=== PATIENT | female | born 1985 | race Caucasian/White ===

== ENCOUNTER 2024-04-12 22:41 | Inpatient (IN) | payer OTHER, SELFPAY ==
[2024-04-12 22:44] VITALS: BP 136/80; PULSE 123; RESP 21; TEMP 36.4; O2SAT 100
--- NOTE | 2024-04-12 22:45 | DI.CT_ITS ---
Exam(s) CT ABDOMEN PELVIS W EXAM: CT ABDOMEN PELVIS W CLINICAL HISTORY: L. flank pain, b/l abd pain, hematuria TECHNIQUE: Imaging Protocol: Axial computed tomography images with coronal and sagittal reformatted images were created and reviewed. CONTRAST MATERIAL: Intravenous: Omnipaque 350 Contrast volume:75 mL Oral: No COMPARISON: CR LUMBAR SPINE COMPLETE from 12/03/2010 CR COCCYX ONLY from 12/03/2010 FINDINGS: ABDOMEN: Lung Bases: There is a small infiltrate in the right lower lobe which may represent atelectasis or pn eumonia. Please correlate clinically. There is a small fluid-filled structure adjacent to the heart in the mediastinum likely reflecting pericardial cyst. Liver: Normal density. No measurable mass. Portal, Superior Mesenteric, and Splenic Veins: Unremarkable. Gallbladder and Biliary Tract: Status post cholecystectomy. Mild intra and extrahepatic biliary duct al dilatation likely reflecting the post cholecystectomy state. Pancreas: Normal density. No inflammatory process or mass. There is calcification in the uncinate p rocess. Spleen: Normal. Adrenals: No masses seen. Kidneys: Normal size, contour and axis. No radiodense stones or obstructive uropathy. There is mild i nflammation surrounding the left ureter and left kidney. No stone is seen. This may reflect inflamm ation/infection. The left kidney shows normal enhancement. Abdominal Aorta: Abdominal portion non-dilated. Mild atherosclerotic calcification is present. Bowel: No obstruction or bowel wall thickening. Appendix is unremarkable. Peritoneal Cavity: No ascites, collection or mesenteric inflammatory response. No free air. Lymph Nodes: Within normal limits. Bones: Within normal limits for the patient's age. Soft Tissues: Unremarkable. PELVIS: Bladder: There is diffuse thickening of the wall of the urinary bladder. Mild stranding is seen arou nd the bladder. No bladder stones are seen. Reproductive Organs: The uterus is absent. The left ovary is visualized and measures 3.4 x 3.8 cm. There are several cysts seen within the left ovary. Lymph Nodes: Within normal limits. Bones: Within normal limits for the patient's age. IMPRESSION: 1. There is inflammation surrounding the left ureter and pelvis raising the question of infection/inf lammatory process such as acute pyelitis. There is also diffuse thickening and mild enhancement of t he wall of the urinary bladder suspicious for acute cystitis. 2. No evidence of nephrolithiasis or hydronephrosis. 3. Small infiltrate is seen in the right lower lobe which may represent atelectasis or pneumonia. Pl ease correlate clinically. 4. Status post cholecystectomy. RADIATION DOSE DELIVERED: 525.56mGy.cm Total DLP DATA REPOSITORY: All CT scans at this facility are submitted to the National Radiology Data Registry (NRDR) Dose Index Registry (DIR) with the [employer] ([employer]). RADIATION OPTIMIZATION: All CT scans at this facility use at least one of these dose optimization te chniques: automated exposure control; mA and/or kV adjustment per patient size (includes targeted exa ms where dose is matched to clinical indication); or iterative reconstruction.
[2024-04-12 22:48] VITALS: BP 139/76; PULSE 120; RESP 20; TEMP 36.6; O2SAT 98
--- NOTE | 2024-04-12 23:00 | ED.GENADUL_ITS ---
Discharge Plan Discharge Details Chief Complaint: Urinary Primary Care Provider: Alex Jon ED Provider: Pepe Mar Home Meds and New Rx's Prescriptions: No Action No Known Home Meds HPI General Mode of arrival: ambulatory . Date/Time Provider Initiated Documentation: 04/12/24 22:43 . Limitations to Documentation: no limitations . Information obtained by: patient . HPI Narrative: HPI: This is a 38-year-old female patient with a history of diabetes, hysterectomy, ovarian cyst, and a remote history of renal stones who is presenting for evaluation of flank and abdominal pain with hematuria. The patient reports that she has had urinary changes with some blood, dysuria, and urgency for the last few days. Today the blood worsened, and she developed left flank pain. This pain radiates down into her bilateral abdomen, and she states that she just feels generally unwell with chills. She has not noted any fever, has had some nausea but no vomiting, has tried ibuprofen in the outpatient environment without significant improvement in her symptoms. The patient reports that she has had a kidney stone in the past but this was a long time ago. She has undergone 2 surgeries for left ovarian cysts that have been only partially successful in managing her pelvic pain. She states that she is recently moved down to this area, and is reestablishing with care providers. She has a plan to meet with her primary care provider in 3 days to discuss changes to her diabetes medications. Exam: Gen: Awake and alert, in no apparent distress HEENT: Non-icteric sclera Neck: Supple Lungs: No apparent respiratory distress, normal respiratory effort. CV: Appears well perfused, heart with tachycardic rate but regular rhythm, soft, generally tender to palpation but most significantly in the epigastric and periumbilical region. No rigidity, rebound, guarding. Abdomen: Non-distended MSK: Moves 4 extremities without apparent limitation in ROM. The patient does endorse left CVA tenderness, no overlying skin changes Skin: Visualized skin without rashes, cyanosis. Neuro: Normal Gait, no obvious focal deficits or facial asymmetry. Speaks in full, clear sentences. Psych: Appropriate for situation. MDM: This is a 38-year-old female patient presenting for evaluation of flank pain, abdominal pain, and hematuria. Differential includes but is not limited to renal stones, pyelonephritis/UTI. The generalized nature of the patient's abdominal pain also increases my concern for intra-abdominal abnormalities such as pancreatitis, hepatitis, cholecystitis, appendicitis, diverticulitis. The patient has an extensive surgical history, and bowel obstruction was considered. She does not have pelvic pain and this is less typical pain for her but I did consider ovarian cyst, torsion, PID/TOA. The patient is status post hysterectomy and is less likely to be experiencing an ectopic . Given her tachycardia, I certainly consider systemic illness such as bacteremia or sepsis, though she is reassuringly without fever at this time. We will obtain laboratory studies to include [id number] test, urinalysis, CBC, CMP, lipase, magnesium. Given the symptoms that are not exclusively consistent with renal stone, we will proceed with CT imaging of her abdomen and pelvis to better characterize any abnormalities. I will provide her with Tylenol, Toradol, and Zofran for initial symptomatic management. ED Course: I independently interpreted the laboratory studies, which show no significant leukocytosis (mildly elevated 12), anemia, or thrombocytopenia. The chemistry panel is without evidence of electrolyte abnormality, kidney dysfunction, or liver injury. Lipase is low. Urinalysis shows hematuria, nitrite positive with pyuria, concerning for urinary tract infection. I signed out care of this patient to the oncoming provider prior to completion of her CT imaging to evaluate for intra-abdominal infection, infected stone, versus pyelonephritis without infected stone. Nini Montaño MD Related Data Home Medications ?Medication ?Instructions ?Recorded ?Confirmed Unknown [No Known Home Meds] 11/08/21 11/08/21 Allergies Allergy/AdvReac Type Severity Reaction Status Date / Time ciprofloxacin (From Cipro) AdvReac Severe Nausea Verified 04/12/24 22:47 metformin AdvReac Severe Diarrhea Verified 04/12/24 22:47 lisinopril AdvReac Unknown Unknown Verified 04/12/24 22:47 General Stated Complaint: Urinary TAMIKO: 3 Course Vital Signs Vital signs: Vital Signs Temperature 36.4 C 04/12/24 22:44 Pulse 123 H 04/12/24 22:44 Respiratory Rate 21 04/12/24 22:44 Blood Pressure 136/80 04/12/24 22:44 Pulse Oximetry 100 04/12/24 22:44 Temperature 36.6 C 04/12/24 22:48 Temperature Source Temporal Artery Scan 04/12/24 22:44 Pulse 120 H 04/12/24 22:48 Respiratory Rate 20 04/12/24 22:48 Blood Pressure 139/76 04/12/24 22:48 Blood Pressure Position Sitting 04/12/24 22:48 Pulse Oximetry 98 04/12/24 22:48 Oxygen Delivery Method Room Air 04/12/24 22:48 Oxygen Flow Rate 0 04/12/24 22:44 Pain Level 10 04/12/24 22:55 Lab/Test Results Lab/Test Results: POC- Test(urine) Negative Medical Decision Making Quality:SDOH Health Related Social Needs: No Data to Display PFSH All Active Problems (Updated 11/08/21 @ 15:21 by Lasha Byrd MD) Foreign body in nose (Acute) Surgical History (Updated 11/08/21 @ 15:13 by Lasha Byrd MD) S/p bilateral myringotomy with tube placement History of tonsillectomy and adenoidectomy Social History Smoking/Tobacco Use Status: Current every day Tobacco Type: cigarettes Smoking risk assessment performed?: Yes Alcohol Intake: current Alcohol Intake frequency: holidays/special occasions only Drug use: Occasionally Substance use type: marijuana Housing: apartment Do you feel safe at home: Yes Do you feel safe in your relationship?: Yes
[2024-04-12 23:05] LABS: Bilirubin Small (Negative); Blood Large (Negative); Clarity Turbid (Clear); Glucose 500 mg/dL (Negative); Ketones Trace mg/dL (Negative); Leukocyte Esterase Small (Negative); Nitrite Positive (Negative); Specific Gravity 1.025 (1.005-1.025)
[2024-04-12 23:17] LABS: RBC 20-50 HPF (0-2)
[2024-04-12 23:18] LABS: Bacteria Few HPF (Negative); C & S Indicated? Yes; Casts Negative LPF (Negative); Crystals Negative HPF (Negative); Epithelial Cells Few HPF (Negative); Mucus Moderate (Negative)
[2024-04-12] MEDS: Acetaminophen 500 MG TAB 1000 MG PO (23:22)
[2024-04-12] MEDS: Ondansetron 4 MG/2 ML VIAL IVP (23:22)
[2024-04-12] MEDS: Ketorolac 15 MG/ML VIAL IVP (23:22)
[2024-04-12 23:42] LABS: Abs Immature Grans 0.04 10^3/uL (0.0-0.06); Absolute Basophil Count 0.06 10^3/uL (0.0-0.2); Absolute Eosinophil Count 0.22 10^3/uL (0.0-0.7); Absolute Lymphocyte Count 1.95 10^3/uL (1.2-3.4); Absolute Monocyte Count 0.72 10^3/uL (0.1-0.8); Absolute Neutrophil Count 9.07 10^3/uL (1.2-6.7); Basophils % 0.5 %; Eosinophils % 1.8 %; HCT 41.3 % (36.0-46.0); HGB 14.5 g/dL (11.2-15.7); Immature Grans % 0.3 %; Lymphocytes % 16.2 %; MCH 31.7 pg (27.0-33.0); MCHC 35.1 % (32.0-36.0); MCV 90 fL (80-95); MPV 12.8 fL (8.0-11.0); Neutrophils % 75.2 %; Platelet Count 137 10^3/uL (130-400); RBC 4.57 10^6/uL (3.93-5.22); RDW 12.2 % (11.7-14.6); RDW-SD 40.1 fL; WBC 12.06 10^3/uL (4.4-10.8)
[2024-04-12 23:57] LABS: Lipase 27 U/L (<78)
[2024-04-12 23:59] LABS: ALT 30 U/L (14-59); AST 9 U/L (15-37); Albumin 3.4 g/dL (3.4-5.0); Alkaline Phosphatase 93 U/L (46-116); Anion Gap 3.5 mmol/L (3-11); BUN 10 mg/dL (7-18); Bilirubin, Total 0.39 mg/dL (0.2-1.0); CO2 30.5 mmol/L (21.0-32.0); CREATININE 0.7 mg/dL (0.55-1.02); Calcium 8.9 mg/dL (8.5-10.1); Chloride 108 mmol/L (98-107); Estimated GFR 113.46 (mL/min/1.73m2); Glucose 241 mg/dL (74-106); Magnesium 1.9 mg/dL (1.8-2.4); Potassium 3.4 mmol/L (3.5-5.1); Sodium 142 mmol/L (136-145); Total Protein 6.4 g/dL (6.4-8.2)
[2024-04-13] VITALS (7 sets, daily range): BP systolic 91–128; BP diastolic 59–76; PULSE 64–87; RESP 16–19; TEMP 35.6–37; O2SAT 92–100
[2024-04-13] MEDS: MORPHine 4 MG/ML SYR IVP ×2 (00:12→01:33)
[2024-04-13] MEDS: Omnipaque 350 MG/ML 100 ML BTL IJ (00:56)
[2024-04-13] MEDS: Normal Saline Flush 10 ML SYR IVP ×3 (00:57→21:20)
[2024-04-13] MEDS: Normal Saline - Diluent 50 ML VIAL IJ (00:57)
--- NOTE | 2024-04-13 01:22 | DI.VRAD_ITS ---
PROCEDURE INFORMATION: Exam: CT Abdomen And Pelvis With Contrast Exam date and time: 04/13/2024 12:31 AM Age: 38 years old Clinical indication: Abdominal pain and other: L flank; Prior surgery; Surgery date: 6+ months; Surgery type: Hysterectomy; Patient HX: L. Flank pain, b/l abd pain, hematuria TECHNIQUE: Imaging protocol: Computed tomography of the abdomen and pelvis with contrast. Radiation optimization: All CT scans at this facility use at least one of these dose optimization techniques: automated exposure control; mA and/or kV adjustment per patient size (includes targeted exams where dose is matched to clinical indication); or iterative reconstruction. Contrast material: OMNIPAQUE 350; Contrast volume: 75 ml; Contrast route: INTRAVENOUS (IV); COMPARISON: No relevant prior studies available. FINDINGS: Lungs: Asymmetric hazy opacity partially visualized in the right lower lung zone. Liver: Normal appearing liver. Gallbladder and biliary ducts: Prior cholecystectomy with postop biliary dilatation. Pancreas: Normal appearing pancreas. Spleen: Normal appearing spleen. Adrenal glands: Normal appearing adrenal glands. Kidneys and ureters: Normal appearing kidneys. No hydronephrosis. Mild asymmetric prominence of the left renal collecting system but no mayra hydronephrosis. Asymmetrically prominent visualization of the urothelium in the left renal pelvis. Periureteral edema on the left. No distally obstructing ureteral stone demonstrated. Stomach and bowel: No oral contrast. Stomach partially distended with fluid. No small bowel dilatation to suggest obstruction. Normal-appearing colon. No evidence of diverticulitis or colitis. Appendix: Normal appendix. Intraperitoneal space: No gross ascites or free air. Vasculature: Normal caliber abdominal aorta. Lymph nodes: No pathologically enlarged mesenteric, retroperitoneal, or pelvic sidewall lymph nodes. Urinary bladder: Urinary bladder partially decompressed but circumferentially thick-walled with hazy indistinctness of the bladder margins. Reproductive: Prior hysterectomy. Ovaries not well evaluated but not grossly enlarged. 2.0 cm dominant right ovarian follicle. Bones/joints: No acute fracture seen among the bones of the abdomen or pelvis. Spinal degenerative change with discogenic degeneration, anterior osteophytes, and posterior osteophytic ridging at several levels with severe narrowing of the left L5-S1 neural foramen with partial flattening of the left L5 nerve root. Congenital lumbar stenosis. Soft tissues: No significant ventral or inguinal hernia. IMPRESSION: 1. Urinary bladder partially decompressed but circumferentially thick-walled with hazy indistinctness of the bladder margins. Acute cystitis could have this appearance although an artifactual appearance created by underdistention can also produce apparent bladder wall thickening. Clinical correlation is recommended. 2. Mild asymmetric prominence of the left renal collecting system with asymmetrically prominent visualization of the urothelium in the renal pelvis and diffuse left-sided ureterectasis. A urinary tract infection with acute pyelitis could have this appearance. Recent passage of a stone from the left upper urinary tract would also be a consideration. Clinical correlation is recommended. 3. Asymmetric hazy opacity partially visualized in the right lower lobe. Atelectasis suspected primarily. Infection or aspiration not confidently excluded. Dictated and Authenticated by: Mick Chavez MD. Ordering:LUIS Calabrese MD
[2024-04-13] MEDS: cefTRIAXone 1 GM/50 ML BAG IVPB (01:28)
[2024-04-13] MEDS: Normal Saline 1,000 ML 1000 ML IV (01:30)
--- NOTE | 2024-04-13 01:30 | W.EDPROG ---
Date of service: 04/13/24 Time of Service: 01:49 Medical Decision Making Patient signed out to me pending results of her CT scan. Patient had presented with hematuria, urinary symptoms, back and abdominal pain. Laboratory studies with a leukocytosis, normal kidney function, UTI by dip and micro. Patient had already received ketorolac, ondansetron, acetaminophen intravenously and continued to complain of significant pain. She has subsequently received 2 doses of IV morphine as well as oral Pyridium. CT scan preliminary radiology read with evidence of both cystitis and pyelonephritis but no evidence of stone and no other acute abdominal pelvic pathology. Patient has received ceftriaxone IV. Because of continued significant pain Case is discussed with hospitalist for admission for pain management, antibiotics. She is receiving a liter of NS at this time for continued mild tachycardia. She is agreeable to admission. Imaging Data Radiologic Study: Imaging: CT Scan Radiologist's impression: Prelim per vRad Abd/Pelvis CT - IMPRESSION: 1. Urinary bladder partially decompressed but circumferentially thick-walled with hazy indistinctness of the bladder margins. Acute cystitis could have this appearance although an artifactual appearance created by underdistention can also produce apparent bladder wall thickening. Clinical correlation is recommended. 2. Mild asymmetric prominence of the left renal collecting system with asymmetrically prominent visualization of the urothelium in the renal pelvis and diffuse left-sided ureterectasis. A urinary tract infection with acute pyelitis could have this appearance. Recent passage of a stone from the left upper urinary tract would also be a consideration. Clinical correlation is recommended. 3. Asymmetric hazy opacity partially visualized in the right lower lobe. Atelectasis suspected primarily. Infection or aspiration not confidently excluded. Lab Data Lab results reviewed: Yes I reviewed the patient's lab results. Discharge Plan Disposition Patient Disposition: Admit to [facility] Condition: Fair Discharge Details Clinical Impression: Pyelonephritis Primary Care Provider: Alex Jon ED Provider: Pepe Mar Home Meds and New Rx's Prescriptions: No Action No Known Home Meds
[2024-04-13] MEDS: Phenazopyridine 100 MG TAB PO (01:33)
[2024-04-13] MEDS: fentaNYL 100 MCG/2 ML VIAL 25 MCG IVP (04:49)
--- NOTE | 2024-04-13 05:27 | W.PM.HP.N ---
Date of service: 04/13/24 Time of Service: 05:27 Assessment and Plan Assessment and plan (1) Pyelonephritis: Start date: 04/13/24 Status: Acute Assessment and plan: This is a 38-year-old lady presenting with urgency which is persisting with a stating she urinates and flank pain which is progressed mostly on her left. She has had recent COVID-19 infection clinically unclear except for slight cough. In the ED she was found to have elevated WBC was tachycardic respond to IV fluids. She also was slightly hypokalemic with no repletion other than IV normal saline given. Her flank pain persists and is responded to fentanyl IV which will be given for pain management. Reinitiated on IV Rocephin which will be continued. Urine culture will be followed up with adjustment of antibiotics as needed. She is diabetic and will have insulin coverage while in the hospital having been only on glimepiride as her medical therapy. She is on no other medications. She does have sleep apnea which is untreated. She is new to the area. She did have gross hematuria with her onset of urinary symptoms and he will be IV hydrated with the possibility of recent passage of stone with a history of nephrolithiasis. Overall she is feeling better but requires inpatient care of her: [employer] especially complicated by possible recent passage of stone and diabetes uncontrolled. Urology will be consulted if needed. Renal ultrasound will be done. Patient is a full code. (2) Gross hematuria: Start date: 04/13/24 Status: Acute Assessment and plan: Associate with UTI and pyelonephritis but possible recent passage of stone. Renal ultrasound. Continue IV hydration. (3) UTI (urinary tract infection): Start date: 04/13/24 Status: Acute Assessment and plan: Urine culture performed and patient on IV ceftriaxone. Follow-up urine culture and adjust antibiotics as needed. (4) Right lower lobe pneumonia: Start date: 04/13/24 Status: Acute Assessment and plan: This may be residual from COVID-19 and would be covered by ceftriaxone if bacterial. Patient has slight cough and chills but no fever. She is a non-smoker and has sleep apnea which is untreated. Follow-up with imaging as indicated. (5) COVID-19: Status: Resolved Assessment and plan: Patient had COVID-19 2 weeks ago and symptoms had resolved except for slight cough. Recheck COVID-19 PCR. (6) Hypokalemia: Start date: 04/13/24 Status: Acute Assessment and plan: Patient is not on diuretics but has had acute illness recently. Oral supplement and follow-up lab. (7) Type 2 diabetes mellitus: Status: Chronic Assessment and plan: Patient had poor control on the ride and is to start injectable therapy soon. While hospitalized she will have glucometer management before meals and at bedtime with moderate sliding scale. Insulin coverage. (8) Nephrolithiasis: Status: Chronic Assessment and plan: Patient has renal lithiasis in the past with possible recent passage of this fall but no overt infection. Renal ultrasound and urology consultation if indicated. (9) SHILPI (obstructive sleep apnea): Status: Chronic Assessment and plan: Patient is not on treatment for this problem. Weight loss is advised and may be achieved as she is started on GLP-1 agonist therapy for diabetes. History of Present Illness History of Present Illness Chief Complaint: Urgency for several days with acute flank pain with hematuria Narrative: This is a 38-year-old female patient recently established care locally who has a history of diabetes only on oral therapy, SHILPI not on therapy, COVID-19 infection 2 weeks prior, status post hysterectomy and ovarian cyst with remote history of renal stones presenting to the ED with left flank pain and hematuria. She also reported chills but no measured fever. She has had a slight persistent cough after COVID-19 infection. Her pain presently radiates into her abdomen bilaterally but more on the left and she was feeling unwell. Had some nausea with her discomfort. In the ED she was found to have an left pyelonephritis with UTI and cystitis I was initiated on ceftriaxone. She was requiring IV analgesics for pain having failed oral analgesics in the ED and having nausea. There is no evidence of obstruction or pain but renal ultrasound will be indicated. She also was on IV hydration. Patient is a full code. Review of Systems Narrative: 13 point review of systems otherwise unrevealing or stable. Patient's weight has not changed recently. She has had recent COVID-19 with slight persistent cough but no production of sputum. She has had nausea with her abdominal pain. PFSH All Active Problems (Updated 04/13/24 @ 05:55 by Temo Leach) Hypokalemia (Acute) Type 2 diabetes mellitus (Chronic) Right lower lobe pneumonia (Acute) SHILPI (obstructive sleep apnea) (Chronic) Nephrolithiasis (Chronic) Gross hematuria (Acute) UTI (urinary tract infection) (Acute) Pyelonephritis (Acute) Foreign body in nose (Acute) Surgical History (Updated 11/08/21 @ 15:13 by Lasha Byrd MD) S/p bilateral myringotomy with tube placement History of tonsillectomy and adenoidectomy Social History Smoking/Tobacco Use Status: Current every day Tobacco Type: cigarettes Smoking risk assessment performed?: Yes Alcohol Intake: current Alcohol Intake frequency: holidays/special occasions only Drug use: Occasionally Substance use type: marijuana Housing: other Do you feel safe at home: Yes Do you feel safe in your relationship?: Yes Meds Allergies and Home Medications Allergies Allergy/AdvReac Type Severity Reaction Status Date / Time ciprofloxacin (From Cipro) AdvReac Severe Nausea Verified 04/12/24 22:47 metformin AdvReac Severe Diarrhea Verified 04/12/24 22:47 lisinopril AdvReac Unknown Unknown Verified 04/12/24 22:47 Home Medications ?Medication ?Instructions ?Recorded ?Confirmed ?Type Unknown [No Known Home Meds] 11/08/21 04/13/24 History Exam Narrative Exam Narrative: General: Patient is moderately obese, alert and oriented x 3 and in moderate distress from her flank pain. HEENT: Normocephalic, eyes with pupils equal and react to light symmetrically, extraocular movement intact and sclera anicteric. Oropharynx with moist mucosa. Neck: Supple without JVD. Back: Left CVA tenderness, stooped posture. Lungs: Good aeration and clear with no focalizing rales or rhonchi, no expiratory wheeze. Normal vesicular breath sounds. Breast: Exam deferred. Heart: Regular rate and rhythm with no murmurs or gallops appreciated. Abdomen: Obese contour, soft to palpation but tender over the left mid abdomen more than right with no palpable hepatosplenomegaly. Bowel sounds positive all quadrants. Genitalia/rectal: Exam deferred. Extremities: Without clubbing, cyanosis or pitting edema. Peripheral pulses intact. Skin: Normal color, warm and dry. Neuro: Cranial nerves II through XII gross intact, no focalized motor deficits. No tremor. Psych: Normal affect and mood. No abnormal thought processes. Remote memory intact. Results Imaging Imaging Studies: Exam: CT Abdomen And Pelvis With Contrast Exam date and time: 04/13/2024 12:31 AM Age: 38 years old Clinical indication: Abdominal pain and other: L flank; Prior surgery; Surgery date: 6+ months; Surgery type: Hysterectomy; Patient HX: L. Flank pain, b/l abd pain, hematuria abnormal COMPARISON: No relevant prior studies available. FINDINGS: Lungs: Asymmetric hazy opacity partially visualized in the right lower lung zone. Liver: Normal appearing liver. Gallbladder and biliary ducts: Prior cholecystectomy with postop biliary dilatation. Pancreas: Normal appearing pancreas. Spleen: Normal appearing spleen. Adrenal glands: Normal appearing adrenal glands. Kidneys and ureters: Normal appearing kidneys. No hydronephrosis. Mild asymmetric prominence of the left renal collecting system but no mayra hydronephrosis. Asymmetrically prominent visualization of the urothelium in the left renal pelvis. Periureteral edema on the left. No distally obstructing ureteral stone demonstrated. Stomach and bowel: No oral contrast. Stomach partially distended with fluid. No small bowel dilatation to suggest obstruction. Normal-appearing colon. No evidence of diverticulitis or colitis. Appendix: Normal appendix. Intraperitoneal space: No gross ascites or free air. Vasculature: Normal caliber abdominal aorta. Lymph nodes: No pathologically enlarged mesenteric, retroperitoneal, or pelvic sidewall lymph nodes. Urinary bladder: Urinary bladder partially decompressed but circumferentially thick-walled with hazy indistinctness of the bladder margins. Reproductive: Prior hysterectomy. Ovaries not well evaluated but not grossly enlarged. 2.0 cm dominant right ovarian follicle. Bones/joints: No acute fracture seen among the bones of the abdomen or pelvis. Spinal degenerative change with discogenic degeneration, anterior osteophytes, and posterior osteophytic ridging at several levels with severe narrowing of the left L5-S1 neural foramen with partial flattening of the left L5 nerve root. Congenital lumbar stenosis. Soft tissues: No significant ventral or inguinal hernia. IMPRESSION: 1. Urinary bladder partially decompressed but circumferentially thick-walled with hazy indistinctness of the bladder margins. Acute cystitis could have this appearance although an artifactual appearance created by underdistention can also produce apparent bladder wall thickening. Clinical correlation is recommended. 2. Mild asymmetric prominence of the left renal collecting system with asymmetrically prominent visualization of the urothelium in the renal pelvis and diffuse left-sided ureterectasis. A urinary tract infection with acute pyelitis could have this appearance. Recent passage of a stone from the left upper urinary tract would also be a consideration. Clinical correlation is recommended. 3. Asymmetric hazy opacity partially visualized in the right lower lobe. Atelectasis suspected primarily. Infection or aspiration not confidently excluded. Labs 04/12/24 23:28 04/12/24 23:28 Labs: Laboratory Results - last 24 hr 04/12/24 04/12/24 22:50 23:28 WBC 12.06 H RBC 4.57 Hgb 14.5 Hct 41.3 MCV 90 MCH 31.7 MCHC 35.1 RDW 12.2 Plt Count 137 MPV 12.8 H Immature Gran % 0.3 Neutrophils % 75.2 Lymphocytes % 16.2 Monocytes % 6.0 Eosinophils % 1.8 Basophils % 0.5 Nucleated RBC % 0.0 Absolute Neutrophils 9.07 H Absolute Lymphocytes 1.95 Absolute Monocytes 0.72 Absolute Eosinophils 0.22 Absolute Basophils 0.06 Sodium 142 Potassium 3.4 L Chloride 108 H Carbon Dioxide 30.5 Anion Gap 3.5 BUN 10 Creatinine 0.7 Est GFR (CKD-EPI 2020) 113.46 Glucose 241 H Calcium 8.9 Magnesium 1.9 Total Bilirubin 0.39 AST 9 L ALT 30 Alkaline Phosphatase 93 Total Protein 6.4 Albumin 3.4 Lipase 27 Urine Color Red Urine Clarity Turbid Urine pH 7.0 Ur Specific [place] 1.025 Urine Protein >=300 H Urine Ketones Trace H Urine Blood Large H Urine Nitrite Positive H Urine Bilirubin Small H Urine Urobilinogen 1.0 H Ur Leukocyte Esterase Small H Urine RBC 20-50 H Urine WBC 10-20 H Ur Epithelial Cells Few Urine Crystals Negative Urine Bacteria Few Urine Casts Negative Urine Mucus Moderate Ur Culture Indicated? Yes Urine Glucose 500 H Last Vital Signs Temp 36.6 C 04/13/24 03:26 Pulse 64 04/13/24 03:26 Resp 16 04/13/24 03:26 BP 109/74 04/13/24 03:26 Pulse Ox 100 04/13/24 03:26 Time Spent Time spent with Patient: >75 minutes Time was spent: preparing to see the patient(eg.review tests), obtaining and/or reviewing separately otained hiistory, ordering medications,tests, procedures, indepentently interpreting results, counseling the patient and care coordination
[2024-04-13] MEDS: fentaNYL 100 MCG/2 ML VIAL 50 MCG IVP ×2 (06:56→09:00)
[2024-04-13] MEDS: Potassium Chloride 20 MEQ TABCR PO (06:59)
[2024-04-13 07:31] LABS: TSH (W/Ref FT4) 0.79 uIU/mL (0.36-3.74)
--- NOTE | 2024-04-13 08:00 | DI.US_ITS ---
Exam(s) US RENAL EXAM: US RENAL CLINICAL HISTORY: Nephrolithiasis with left pyelonephritis. TECHNIQUE: Fernandez scale, color and spectral Doppler were used. COMPARISON: CT CT ABDOMEN PELVIS W from 04/13/2024 FINDINGS: Renal size in cm: Right: 10.3. Left: 12.5. Echogenicity: Normal. Hydronephrosis: No. Cyst or mass: No. Nephrolithiasis: No. Other findings: None. Bladder:The bladder was empty and could not be evaluated. Ureteral jets: Right: Not seen on this examination. Left: Not seen on this examination. Renal color flow: Symmetric and within normal limits. IMPRESSION: No evidence of nephrolithiasis or hydronephrosis. DATA REPOSITORY:
[2024-04-13] MEDS: Enoxaparin 40 MG/0.4 ML SYR SC (08:19)
[2024-04-13] MEDS: Normal Saline 1,000 ML 150 ML IV ×3 (08:19→22:41)
[2024-04-13] MEDS: Insulin Aspart 300 UNITS/3 ML PEN SC ×2 (08:21→17:06)
--- NOTE | 2024-04-13 08:45 | PDOC.CMIN ---
Date of service: 04/13/24 Time of Service: 08:45 Care Management Initial Assmt Initial Assessment Reason for Hospitalization: Pylonephritis, Diabetes Functional Status/Living Situation Patient Presentation: Mira was lying in bed, visiting with 3 family members when CM met with her. She relocated to the area from [place] and is living in [place] with a roommate. She is recently and was staying with her sister Tosha. Mira is employed by the [employer] and is independent at baseline. Mira reported to CM that she has [employer] [facility] [employer] through her ex- but does not have information with her. CM notified the admission team and asked that they contact pt directly. Town of Residence: [place] Resides with: Other (Roommate) Significant Other/Family: Local (Sister in [place]) Natural Supports: Supportive family and friends Employment Status: Employed ([employer]) Instrumental Activities of Daily Living (ADLs): Independent Medications Medication Management: No Issues/Barriers identified Advance Directives Advance Directives: Do you have an Advance Directive: N 04/13/24 02:31 AD On File at [facility]: N 11/08/21 13:59 Date Asked 04/12/24 04/12/24 22:46 AD Date Reviewed COLST On File at [facility] COLST Date Scanned Code Status Resuscitation Status Full Code Portal Pt does not currently have a portal and education provided: Yes Insurance Coverage/Financial Issues Insurance: [facility] (patient reported) Financial Issues: Recently , relocated to [place] and is starting over. Care Team Visit Care Team Role Provider Type Alex Jon Primary Care Provider NON-[facility] STAFF PHYSICIAN Pepe Mar MD Emergency Provider [facility] STAFF PHYSICIAN Temo Leach Admit Provider NON-[facility] STAFF PHYSICIAN Attending Provider Discharge Potential Discharge Needs: PCP F/U Appt Anticipated Barriers to Discharge: Medical Status Patient/Family Education Needs: Review discharge instructions, discuss Ask Me Three Transportation: Private vehicle Plan: Anticipate, Mira will discharge home via private vehicle with family when medically ready for discharge. Pt will follow up with community providers and her discharge plan of care once established. No new services are anticipated at this time. CM placed [facility] referral with patients consent. Social Determinants of Health Screening Social Determinants of Health last assessed: 04/13/24 Will the Patient Participate in the Screening?: Declined to provide Do you worry about having a steady place to live?: no Problems where you live: no known problems In the past 12 months, have you had to go without electric, gas, oil or water in your home?: no Have you or anyone in your house had to go without enough food to eat?: no Has lack of transportation kept you from medical appointments or from doing things needed for daily living?: no Has anyone in your life made you feel unsafe or unsupported?: no How hard is it for you to pay for the very basics like food, housing, medical care, and heating? Would you say it is:: Not hard at all Do you want help finding or keeping work or a job?: I do not need or want help If for any reason you need help with day-to-day activities such as bathing, preparing meals, shopping, managing finances, etc., do you get the help you need?: I don?t need any help How often do you feel lonely or isolated from those around you?: Never Do you speak a language other than Georgian at home?: No Does the patient want assistance with any of the above?: No PFSH All Active Problems (Updated 04/13/24 @ 05:55 by Temo Leach) Hypokalemia (Acute) Type 2 diabetes mellitus (Chronic) Right lower lobe pneumonia (Acute) SHILPI (obstructive sleep apnea) (Chronic) Nephrolithiasis (Chronic) Gross hematuria (Acute) UTI (urinary tract infection) (Acute) Pyelonephritis (Acute) Foreign body in nose (Acute) Surgical History (Updated 11/08/21 @ 15:13 by Lasha Byrd MD) S/p bilateral myringotomy with tube placement History of tonsillectomy and adenoidectomy Social History Smoking/Tobacco Use Status: Current every day Tobacco Type: cigarettes Smoking risk assessment performed?: Yes Alcohol Intake: current Alcohol Intake frequency: holidays/special occasions only Drug use: Occasionally Substance use type: marijuana Housing: other Do you feel safe at home: Yes Do you feel safe in your relationship?: Yes
[2024-04-13] MEDS: HYDROmorphone 2 MG/ML SYR IVP ×4 (10:16→21:17)
--- NOTE | 2024-04-13 11:15 | PHA.REVIEW2 ---
Pharmacy Admission Review Admission Clinical Review Admission Pharmacy Review: Hypokalemia (Acute) Right lower lobe pneumonia (Acute) Gross hematuria (Acute) UTI (urinary tract infection) (Acute) Pyelonephritis (Acute) ciprofloxacin (From Cipro) Adverse Reaction (Severe, Verified 04/12/24 22:47) Nausea metformin Adverse Reaction (Severe, Verified 04/12/24 22:47) Diarrhea lisinopril Adverse Reaction (Unknown, Verified 04/12/24 22:47) Unknown Resuscitation Status Full Code Height 5 ft 2.5 in Weight 78.6 kg Pharmacy Admission Review Renal Dosing Renal Dosing: BUN 10 mg/dL (7-18) 04/12/24 23:28 Creatinine 0.7 mg/dL (0.55-1.02) 04/12/24 23:28 Medications needing adjustments: Reviewed (CrCl 106.98 mL/min) List of meds needing interventions: Current medications are okay Anticoagulation Anticoagulation: Hgb 14.5 g/dL (11.2-15.7) 04/12/24 23:28 Hct 41.3 % (36.0-46.0) 04/12/24 23:28 Plt Count 137 10^3/uL (130-400) 04/12/24 23:28 Creatinine 0.7 mg/dL (0.55-1.02) 04/12/24 23:28 DVT Prophylaxis: Reviewed Medications: Enoxaparin (40mg daily) Opiate Usage Evaluate Pain Scale/Pains Meds: Reviewed (hydromorphone 2mg IVP q4h PRN - 1 dose given so far) Scheduled Bowel Reg ordered if on Opiates?: No (PRN docusate/Miralax) Relevant Labs Relevant Labs: Sodium 142 mmol/L (136-145) 04/12/24 23:28 Potassium 3.4 mmol/L (3.5-5.1) L 04/12/24 23:28 Chloride 108 mmol/L (98-107) H 04/12/24 23:28 Magnesium 1.9 mg/dL (1.8-2.4) 04/12/24 23:28 Electrolytes, C-Reactive P, ESR: Reviewed (No new labs today) DM Control DM Control: Glucose 241 mg/dL (74-106) H 04/12/24 23:28 Finger Stick Blood Glucose 214 0821 Finger Stick Blood Glucose 213 0820 Finger Stick Blood Glucose 213 0820 DM Control: Reviewed Insulin Dosing, Diabetic Medication: Has order for SS insulin Cardiac Review BP, HR, EF%: Reviewed (HR and BP WNL) QTc Review QTc: Reviewed (No EKG on file) IV to PO Switch IV Medications: Reviewed (ceftriaxone and hydromorphone) Home Meds Home Med List reviewed: Reviewed Relevent Home Meds Not ordered & why?: No known home meds Current Meds Current Medication Order Review: Intervened Comments: Changed IV ED access Added 2nd PRN to fentanyl order per pharmacy protocol (order was then changed to hydromorphone by provider) Pharmacy Antibiotic Review Relevant Labs: WBC 12.06 10^3/uL (4.4-10.8) H 04/12/24 23:28 Temperature 35.8 C Temperature 36.6 C Temperature 36.6 C Pharmacy Antibiotic Activity: C/S review and Reviewed, no change Comments: Patient is on ceftriaxone, day 1, for pyelonephritis. Urine culture is pending, waiting on culture to determine appropriate PO treatment per provider.
[2024-04-13] MEDS: Ondansetron 4 MG/2 ML VIAL IVP ×4 (11:34→22:01)
[2024-04-13] MEDS: Nicotine 21 MG/24 HR PATCH TD (12:49)
[2024-04-13] MEDS: Patch Removal 1 EACH TP (13:28)
[2024-04-14] MEDS: HYDROmorphone 2 MG/ML SYR IVP ×3 (00:32→08:09)
[2024-04-14] MEDS: cefTRIAXone 1 GM/50 ML BAG IVPB (01:08)
[2024-04-14 02:41] VITALS: BP 142/79; PULSE 86; RESP 16; TEMP 36.4; O2SAT 95
[2024-04-14] MEDS: Ondansetron 4 MG/2 ML VIAL IVP ×2 (02:54→08:08)
--- NOTE | 2024-04-14 04:29 | W.PC.ACHO ---
Registration Status: Primary Language: Preferred Language: ED Information & Data Chief Complaint Urinary 04/12/24 23:04 Triage Note Pt experiencing pain and 04/12/24 22:44 frequency w/ urination x4 days, now bloody urine w/ back and abd pain (Last Updated 11/08/21 @ 15:13 by Lasha Byrd MD) S/p bilateral myringotomy with tube placement History of tonsillectomy and adenoidectomy Most Recent Vital Signs Temperature 36.4 C L 04/14/24 02:41 Temperature Source Tympanic 04/14/24 02:41 Pulse 86 04/14/24 02:41 Pulse Rhythm Regular 04/13/24 02:54 Respiratory Rate 16 04/14/24 02:41 Respiratory Effort Normal, Non-Labored 04/13/24 02:54 Respiratory Depth Normal 04/13/24 02:54 Respiratory Pattern Normal 04/13/24 02:54 Blood Pressure 142/79 H 04/14/24 02:41 Blood Pressure Position Sitting 04/12/24 22:48 Pulse Oximetry 95 04/14/24 02:41 Oxygen Delivery Method Room Air 04/14/24 02:41 Oxygen Flow Rate 0 04/14/24 02:41 Pain Level 8 04/14/24 03:36 Comment pain is in abdomen, flank areas 04/13/24 03:26 Allergies ciprofloxacin (From Cipro) Adverse Reaction (Severe, Verified 04/12/24 22:47) Nausea N/V SEVERE metformin Adverse Reaction (Severe, Verified 04/12/24 22:47) Diarrhea lisinopril Adverse Reaction (Unknown, Verified 04/12/24 22:47) Unknown Precautions Isolation Standard precaution 04/12/24 22:48 Active Medications Generic Name Dose Route Start Last Admin Trade Name Freq PRN Reason Stop Dose Admin Enoxaparin Sodium 40 mg 04/13/24 08:30 04/13/24 08:19 Enoxaparin 40 Mg/0.4 Ml Syr SC 40 mg DAILY FADI Administration Hydromorphone HCl 2 mg 04/13/24 12:43 04/14/24 03:36 Hydromorphone 2 Mg/Ml Syr IVP 2 mg Q3H PRN PRN Administration Sodium Chloride 1,000 mls @ 150 mls/hr 04/13/24 06:00 04/14/24 02:40 Saline 1000ml Bag IV 150 mls/hr INFUSION [facility] Infusion Ceftriaxone Sodium/Dextrose 1 gm in 50 mls @ 100 mls/hr 04/14/24 00:00 04/14/24 01:40 Rocephin IVPB Infused Q24H [facility] Infusion Insulin Aspart 0 units 04/13/24 08:00 04/13/24 21:38 Insulin Aspart 300 Units/3 Ml Pen SC Not Given 0800,1200,1700,2200 [facility] Protocol Ondansetron HCl 4 mg 04/13/24 11:23 04/14/24 02:54 Ondansetron 4 Mg/2 Ml Vial IVP 4 mg Q4H PRN PRN Administration Sodium Chloride 0 ml 04/12/24 22:50 04/13/24 00:57 Normal Saline Flush 10 Ml Syr IVP 10 ml PRN PRN Administration Sodium Chloride 0 ml 04/13/24 08:30 04/13/24 21:20 Normal Saline Flush 10 Ml Syr IVP 10 ml BID FADI Administration IV IV Catheter Type [] Saline Lock IV Catheter Type [Right Saline Lock Antecubital] IV Catheter Gauge [] 20 IV Catheter Gauge [Right 20 Antecubital] Diagnostics 04/14/24 04/13/24 04/12/24 Range/Units 05:35 05:49 23:28 WBC Pending RBC Pending Hgb Pending Hct Pending MCV Pending MCH Pending MCHC Pending RDW Pending Plt Count Pending MPV Pending Sodium Pending Potassium Pending Chloride Pending Carbon Dioxide Pending Anion Gap Pending BUN Pending Creatinine Pending Est GFR (CKD-EPI 2020) Pending Glucose Pending Calcium Pending Magnesium Pending Total Bilirubin Pending AST Pending ALT Pending Alkaline Phosphatase Pending Total Protein Pending Albumin Pending TSH 0.79 (0.36-3.74) uIU/mL COVID-19 Source Cancelled SARS-CoV-2 (PCR) Cancelled [id number] Documentation Fingerstick Glucose Start: 04/13/24 05:55 Freq: .ACHS Status: Active Protocol: Activity Type Activity Date Activity User E-sign Co-sign Detail Recorded Client Recorded Date Recorded By Document 04/13/24 21:23 BKG DAEMON(3) [id number] 04/13/24 21:28 BKG DAEMON(4) POC Urine Test Start: 04/12/24 22:44 Freq: .Urine Test Status: Complete Protocol: Activity Type Activity Date Activity User E-sign Co-sign Detail Recorded Client Recorded Date Recorded By Document 04/12/24 22:54 GILLIAN MAURO-VM02 04/12/24 22:54 GILLIAN Intake and Output - 24 Hour Total 04/12/24 22:41 thru 04/14/24 03:45 Intake Total 4040 Output Total 1775 Balance 2265 Weight 78.6 kg Intake: IV 3320 Oral 720 Output: Urine 1375 Emesis 400 Other: Urine Color [place] Urine Appearance Clear Urine Odor None Comment pt voided very little into toilet Emesis Description Retching Bile Falls Risk Assessment History of Falls No History 04/13/24 02:54 Contributing Factors No Factors 04/13/24 02:54 Ambulatory Aids Independent 04/13/24 02:54 Tubes/Lines W/no contributing factors 04/13/24 02:54 Gait Evaluation No gait disturbance 04/13/24 02:54 Cognition No cognitive impairment 04/13/24 02:54 Fall Total Score 10 04/13/24 02:54 Level of Risk Standard/Low Risk 04/13/24 02:54 Problems Hypokalemia (Acute) Type 2 diabetes mellitus (Chronic) Right lower lobe pneumonia (Acute) SHILPI (obstructive sleep apnea) (Chronic) Nephrolithiasis (Chronic) Gross hematuria (Acute) UTI (urinary tract infection) (Acute) Pyelonephritis (Acute) v v v v v v v v v Sending and/or Receiving Nurses: Please use comment section below to note any information pertinent to the patient hand-off not included above. Information / Comments: all questions answered Report received from: Era Manjarrez around 0230 04/13/24
[2024-04-14] MEDS: Normal Saline 1,000 ML 150 ML IV (06:39)
[2024-04-14 07:03] LABS: HCT 39.3 % (36.0-46.0); HGB 13.1 g/dL (11.2-15.7); MCHC 33.3 % (32.0-36.0); MCV 93 fL (80-95); Platelet Count 104 10^3/uL (130-400); RBC 4.23 10^6/uL (3.93-5.22); RDW-SD 41.2 fL; WBC 7.09 10^3/uL (4.4-10.8)
[2024-04-14 07:33] LABS: ALT 353 U/L (14-59); AST 222 U/L (15-37); Albumin 3.1 g/dL (3.4-5.0); Alkaline Phosphatase 118 U/L (46-116); Anion Gap 6.6 mmol/L (3-11); BUN 4 mg/dL (7-18); Bilirubin, Total 1.11 mg/dL (0.2-1.0); CO2 30.4 mmol/L (21.0-32.0); CREATININE 0.5 mg/dL (0.55-1.02); Calcium 8.3 mg/dL (8.5-10.1); Chloride 109 mmol/L (98-107); Estimated GFR 123.04 (mL/min/1.73m2); Glucose 166 mg/dL (74-106); Magnesium 1.9 mg/dL (1.8-2.4); Potassium 3.4 mmol/L (3.5-5.1); Sodium 146 mmol/L (136-145); Total Protein 6.1 g/dL (6.4-8.2)
[2024-04-14] MEDS: Enoxaparin 40 MG/0.4 ML SYR SC (08:09)
[2024-04-14] MEDS: Normal Saline Flush 10 ML SYR IVP (08:10)
--- NOTE | 2024-04-14 08:28 | RESPIRATORY ---
Spoke with patient about SHILPI diagnosis and she advised she had a CPAP machine approx. 10 years ago and the water chamber cracked and her DME wouldn't replace it. Stopped using and doesn't feel that it is needed.
[2024-04-14] MEDS: Insulin Aspart 300 UNITS/3 ML PEN SC ×2 (08:31→12:18)
[2024-04-14] MEDS: HYDROmorphone 4 MG TAB PO (10:42)
--- NOTE | 2024-04-14 10:52 | PDOC.CMPRO ---
Date of service: 04/14/24 Time of Service: 10:52 Care Management Progress Note Progress Note Text Progress Note Text: Mira is eager to discharge home and is transitioned to PO pain medication. Letter to return to work tomorrow without restrictions is written by GRANT; as recommended by Dr. Peters . Anticipate pt will discharge home today with no new services. Transportation will be provided by family. Discharge Potential Discharge Needs: PCP F/U Appt Anticipated Barriers to Discharge: None Identified Patient/Family Education Needs: Review discharge instructions, discuss Ask Me Three Transportation: Private vehicle Plan: Anticipate, Mira will discharge home via private vehicle with family when medically ready for discharge. Pt will follow up with community providers and her discharge plan of care once established. No new services are anticipated at this time. CM placed [facility] referral with patients consent. Social Determinants of Health Screening Social Determinants of Health last assessed: 04/14/24 Will the Patient Participate in the Screening?: Declined to provide Do you worry about having a steady place to live?: no Problems where you live: no known problems In the past 12 months, have you had to go without electric, gas, oil or water in your home?: no Have you or anyone in your house had to go without enough food to eat?: no Has lack of transportation kept you from medical appointments or from doing things needed for daily living?: no Has anyone in your life made you feel unsafe or unsupported?: no How hard is it for you to pay for the very basics like food, housing, medical care, and heating? Would you say it is:: Not hard at all Do you want help finding or keeping work or a job?: I do not need or want help If for any reason you need help with day-to-day activities such as bathing, preparing meals, shopping, managing finances, etc., do you get the help you need?: I don?t need any help How often do you feel lonely or isolated from those around you?: Never Do you speak a language other than Ukrainian at home?: No Does the patient want assistance with any of the above?: No Interventions CM: [facility] (referral placed, prior to discharge.)
[2024-04-14 11:17] VITALS: BP 119/66; PULSE 54; RESP 17; TEMP 36.1; O2SAT 95
--- NOTE | 2024-04-14 11:25 | PDOC.CMDIS ---
Date of service: 04/14/24 Time of Service: 11:25 LACE Index Scoring Tool Questions: Length of Stay (in days): 1 Was the patient admitted via the E.D.?: Yes E.D. Visits: 1 Answers: Total Score: 5 Risk of Readmission: Low Risk Care Management Discharge Plan Reason for Hospitalization: Pyelonephritis Discharge Plan: Discharge home via private vehicle with family. Follow up with community providers and discharge plan of care as directed. Mira is able to return to work tomorrow, no restrictions per Dr. Peters; work note generated by CM. [facility] referral was placed prior to discharge. Patient/Family Education Needs: Review discharge instructions, limitations, medications and plan to follow up with community providers. Discuss ask me three. SDOH Health Related Social Needs: No Data to Display Care Management Referrals: [facility] (referral placed, prior to discharge.)
--- NOTE | 2024-04-14 13:34 | DSE_ITS ---
Date of service: 04/14/24 Time of Service: 13:34 DS: Diagnosis Discharge Diagnosis (1) Pyelonephritis: Status: Acute (2) Gross hematuria: Status: Acute (3) UTI (urinary tract infection): Status: Acute (4) Right lower lobe pneumonia: Status: Acute (5) COVID-19: Status: Resolved (6) Hypokalemia: Status: Acute (7) Type 2 diabetes mellitus: Status: Chronic (8) Nephrolithiasis: Status: Chronic (9) SHILPI (obstructive sleep apnea): Status: Chronic Discharge Plan Disposition Patient Disposition: Home Condition: Good Discharge Details Reason For Visit: Pyelonephritis, Diabetes mellitus, Nephrolithiasis Admit Date/Time: 04/13/24 01:47 Admit Provider: Temo Leach Attending Provider: Temo Leach [facility] Course: Patient presented with significant flank pain that was ultimately determined to be secondary to pyelonephritis. She was initially treated with IV ceftriaxone and had significant improvement was ultimately transition to p.o. cefpodoxime. She did have ongoing pain and needed frequent IV Dilaudid however, upon transitioning to p.o. Dilaudid she did have longer resolution of her pain and ultimately felt comfortable discharging home to continue her antibiotic regimen. Home Meds and New Rx's Prescriptions: New cefpodoxime 200 mg Tablet 200 mg PO BID Qty: 14 0RF hydromorphone 4 mg Tablet 4 mg PO Q6H PRN PRNQty: 12 0RF Discharge Instructions Activity:: Activity as Tolerated Equipment/Supplies:: No Equipment Needed Diet:: As Tolerated Discharge Orders Discharge Orders: Discharge Order (Routine); Ordered 04/14/24 Ordered By: Chris Peters DS: Summary Time Spent with Patient providing and/or coordinating discharge services: Greater than 30 minutes Status at Discharge Functional status at discharge: independent ambulation Overall status at discharge: patient is back to baseline Mental Status: mental status grossly normal Speech and Movement: speech and movement normal Mood: congruent mood Affect: normal affect Quality:SDOH Health Related Social Needs: No Data to Display Exam Narrative Exam Narrative: Well-appearing young female sitting up in the bed in mild distress secondary to flank pain, ANO x 4, heart regular rhythm, lungs clear to auscultation bilaterally, abdomen soft, with mild diffuse tenderness, without rebounding or guarding Psych Mental Status: mental status grossly normal Speech and Movement: speech and movement normal Mood: congruent mood Affect: normal affect DS: Data Vitals/I&O Vitals and I&O: Vital Signs Temperature 97.0 F L 04/14/24 11:17 Temperature Source Tympanic 04/14/24 11:17 Pulse 54 L 04/14/24 11:17 Pulse Rhythm Regular 04/13/24 02:54 Respiratory Rate 17 04/14/24 11:17 Respiratory Effort Normal, Non-Labored 04/13/24 02:54 Respiratory Depth Normal 04/13/24 02:54 Respiratory Pattern Normal 04/13/24 02:54 Blood Pressure 119/66 04/14/24 11:17 Blood Pressure Position Sitting 04/12/24 22:48 Pulse Oximetry 95 04/14/24 11:17 Oxygen Delivery Method Room Air 04/14/24 02:41 Oxygen Flow Rate 0 04/14/24 02:41 Pain Level 8 04/14/24 10:42 Comment pain is in abdomen, flank areas 04/13/24 03:26 Intake & Output 04/13/24 04/14/24 04/14/24 17:59 05:59 17:59 Intake Total 1420 / 1420 1550 / 2970 1930 / 1930 Output Total 400 / 400 1050 / 1450 170 / 170 Balance 1020 / 1020 500 / 1520 1760 / 1760 Weight 176 lb 9.444 oz Intake: IV 1000 / 1000 1250 / 2250 1450 / 1450 Oral 420 / 420 300 / 720 480 / 480 Output: Urine 400 / 400 650 / 1050 120 / 120 Emesis 400 / 400 50 / 50 Other: Urine Color [place] Urine Appearance Clear Clear Clear Urine Odor None None None Comment pt voided very little into toilet Pt voided in toilet. Emesis Description Retching Bile Bile Mucous Data Completed and Pending Labs on day of discharge: Labs from last 24 hours 04/14/24 06:20 WBC 7.09 RBC 4.23 Hgb 13.1 Hct 39.3 MCV 93 MCH 31.0 MCHC 33.3 RDW 12.0 Plt Count 104 L MPV 13.0 H Sodium 146 H Potassium 3.4 L Chloride 109 H Carbon Dioxide 30.4 Anion Gap 6.6 BUN 4 L Creatinine 0.5 L Est GFR (CKD-EPI 2020) 123.04 Glucose 166 H Calcium 8.3 L Magnesium 1.9 Total Bilirubin 1.11 H AST 222 H ALT 353 H Alkaline Phosphatase 118 H Total Protein 6.1 L Albumin 3.1 L Preliminary micro results at discharge 04/12/24 22:50 Urine Culture - Preliminary Urine - Reflex from Ua Gram positive montrell Gram negative castro PFSH All Active Problems (Updated 04/14/24 @ 13:34 by Chris Peters MD) Hypokalemia (Acute) Type 2 diabetes mellitus (Chronic) Right lower lobe pneumonia (Acute) SHILPI (obstructive sleep apnea) (Chronic) Nephrolithiasis (Chronic) Gross hematuria (Acute) UTI (urinary tract infection) (Acute) Pyelonephritis (Acute) Foreign body in nose (Acute) Surgical History (Updated 11/08/21 @ 15:13 by Lasha Byrd MD) S/p bilateral myringotomy with tube placement History of tonsillectomy and adenoidectomy Social History Smoking/Tobacco Use Status: Current every day Tobacco Type: cigarettes Smoking risk assessment performed?: Yes Alcohol Intake: current Alcohol Intake frequency: holidays/special occasions only Drug use: Occasionally Substance use type: marijuana Housing: other Do you feel safe at home: Yes Do you feel safe in your relationship?: Yes Time Spent with Patient Time Spent with Patient: <45 minutes Time was spent: preparing to see the patient(eg.review tests), obtaining and/or reviewing separately otained hiistory, ordering medications,tests, procedures, referring, communicating with other health patient care provider, indepentently interpreting results, counseling the patient and care coordination
== END 2024-04-14 14:22 | disposition home or self-care (01) | DRG 689 ==
LOC: ER 04-13 02:32 → MS 04-13 02:51
PROVIDERS: Emergency Medicine; Admitting Provider Family Medicine; Emergency Provider Emergency Medicine; PCP Family Medicine; Visit Provider Family Medicine
DX: N10 Acute pyelonephritis (principal); J18.9 Pneumonia, unspecified organism; N30.01 Acute cystitis with hematuria; E87.6 Hypokalemia; E11.65 Type 2 diabetes mellitus with hyperglycemia; G47.33 Obstructive sleep apnea (adult) (pediatric); Z79.84 Long term (current) use of oral hypoglycemic drugs; F17.210 Nicotine dependence, cigarettes, uncomplicated; F12.90 Cannabis use, unspecified, uncomplicated; E66.9 Obesity, unspecified; Z87.442 Personal history of urinary calculi; Z68.31 Body mass index [BMI] 31.0-31.9, adult
CPT/HCPCS: 00123; 36415; 76770; 80053; 81025; 83690; 85027; 87077; 87635; 96361; 96365; 96375; 96376; 99285; J1650; 74177; 81003; 81015; 83735; 84443; 85025; 87086; 87186; 99223; 99239; J0696; J1171; J1644; J1815; J1885; J2270; J2405; J3010; J3490

== ENCOUNTER 2024-06-10 08:59 | Emergency (ER) | payer OTHER, SELFPAY ==
[2024-06-10 09:07] VITALS: BP 112/74; PULSE 118; RESP 20; TEMP 36.5; O2SAT 98
--- NOTE | 2024-06-10 09:30 | ED.GENADUL_ITS ---
Discharge Plan Disposition Patient Disposition: Home Condition: Good Discharge Details Clinical Impression: Sinusitis, URI (upper respiratory infection) Primary Care Provider: Alex Jon ED Provider: Geovanny Cooper Home Meds and New Rx's Prescriptions: New amoxicillin-pot clavulanate 875-125 mg tablet 1 tab PO BID 14 Days Qty: 28 0RF triamcinolone acetonide [Nasacort] 55 mcg aerosol,spray 2 spray intranasal DAILY Qty: 16.9 0RF Rx Instructions: administer into each nostril No Action cyclobenzaprine 10 mg tablet 10 mg PO TID PRN Patient Comments: TAKE 1 TABLET BY MOUTH THREE TIMES DAILY NEEDED FOR SPASM gabapentin 100 mg capsule 100 mg PO TID Patient Comments: TAKE 1 CAPSULE BY MOUTH THREE TIMES DAILY Discharge Instructions Instructions: Sinusitis, Adult ED Additional Instructions: At this time you have evidence of sinusitis which at this stage is likely bacterial. Please take the antibiotics as directed. Please take Tylenol and Motrin for pain. Please take the prescribed nasal spray as directed. It has been sent to your pharmacy on file. Please continue to use a [place] pot or steamy shower to help with your nasal drainage. Please apply a circular like motion to the 4 areas on your face to help with nerve stimulation to facilitate additional sinus drainage. if you notice any worsening of your symptoms, or any new symptoms such as worsening headache, worsening frontal head pain, vomiting, diarrhea, fever, chills, shortness of breath, chest pain, numbness, weakness, or fainting , please return immediately to the emergency department for reevaluation. Please follow up with your primary care provider as soon as possible for reassessment and reevaluation. As always, it was a pleasure participating in your medical care today. Stand Alone Forms: Work Release Referrals: Alex Jon [Primary Care Provider] - Discharge Data Discharge Date/Time-TO BE ENTERED AT DEPARTURE: 06/10/24 09:53 HPI General Date/Time Provider Initiated Documentation: 06/10/24 09:20 . HPI Narrative: 38-year-old female with a past medical history of type 2 diabetes and obstructive sleep apnea presents today for evaluation of frontal sinus congestion, cough, fatigue. Patient states that symptoms have been present for the last 7 to 8 days. Negative COVID and flu swabs at home, she has been having productive sputum both from coughing, and also nasally. She admits to a pressure-like sensation in front of her sinuses. She denies any neck stiffness. She denies any vision changes. She is not on any control or estrogen. No other complaints at this time. Past medical history is positive for tympanostomy tubes. Related Data Home Medications ?Medication ?Instructions ?Recorded ?Confirmed amoxicillin 875 mg-potassium 1 tab PO BID 14 days #28 tabs 06/10/24 clavulanate 125 mg tablet cyclobenzaprine 10 mg tablet 10 mg PO TID PRN 06/10/24 06/10/24 gabapentin 100 mg capsule 100 mg PO TID 06/10/24 06/10/24 triamcinolone acetonide 55 mcg 2 spray intranasal DAILY #16.9 mL 06/10/24 nasal spray aerosol (Nasacort) Previous Rx's ?Medication ?Instructions ?Recorded amoxicillin 875 mg-potassium 1 tab PO BID 14 days #28 tabs 06/10/24 clavulanate 125 mg tablet triamcinolone acetonide 55 mcg 2 spray intranasal DAILY #16.9 mL 06/10/24 nasal spray aerosol (Nasacort) Allergies Allergy/AdvReac Type Severity Reaction Status Date / Time ciprofloxacin (From Cipro) AdvReac Severe Nausea Verified 06/10/24 09:07 metformin AdvReac Severe Diarrhea Verified 06/10/24 09:07 lisinopril AdvReac Unknown Unknown Verified 06/10/24 09:07 General Stated Complaint: RespSymp TAMIKO: 3 Exam Narrative Exam Narrative: 1.Const: Well-nourished, Well-developed, appearing stated age 2.Eyes: PERRL, no conjunctival injection, and symmetrical lids. 3.ENT: Atraumatic external nose and ears. Moist MM. Neck: Symmetric, trachea midline, No thyromegaly. Frontal and maxillary sinus tenderness on percussion. Tympanic membranes are richardson pearly but do have evidence of previous scars. No significant erythema in the posterior oropharynx. 4.CVS: +S1/S2, Peripheral pulses 2+ and equal in all extremities. Brisk capillary refill in all extremities. 5.RESP: Unlabored respiratory effort. Clear to auscultation bilaterally. No wheezes rales or rhonchi 6.GI: Soft, Nontender/Nondistended, No hepatosplenomegaly. No guarding or rebound. 7.MSK: Normocephalic/Atraumatic, Extremities w/o deformity or ttp No cyanosis or clubbing, Normal movement of all extremities 8.Skin: Warm, Dry. No rashes or lesions. 9.Neuro: director diversity II-XII grossly intact. Sensation grossly intact, no focal neurologic deficits. 10.Psych: (AAO) x3. Appropriate mood and affect Course Vital Signs Vital signs: Vital Signs Temperature 36.5 C 06/10/24 09:07 Pulse 118 H 06/10/24 09:07 Respiratory Rate 20 06/10/24 09:07 Blood Pressure 112/74 06/10/24 09:07 Pulse Oximetry 98 06/10/24 09:07 Temperature 36.5 C 06/10/24 09:07 Temperature Source Oral 06/10/24 09:07 Pulse 118 H 06/10/24 09:07 Respiratory Rate 20 06/10/24 09:07 Blood Pressure 112/74 06/10/24 09:07 Blood Pressure Position Sitting 06/10/24 09:07 Pulse Oximetry 98 06/10/24 09:07 Oxygen Delivery Method Room Air 06/10/24 09:07 Oxygen Flow Rate 0 06/10/24 09:07 Pain Level 8 06/10/24 09:07 Medical Decision Making 38-year-old female with a past medical history of type 2 diabetes and obstructive sleep apnea presents today for evaluation of frontal sinus congestion, cough, fatigue. Patient states that symptoms have been present for the last 7 to 8 days. Negative COVID and flu swabs at home, she has been having productive sputum both from coughing, and also nasally. She admits to a pressure-like sensation in front of her sinuses. She denies any neck stiffness. She denies any vision changes. She is not on any control or estrogen. No other complaints at this time. Past medical history is positive for tympanostomy tubes. Exam demonstrates sinus tenderness for the frontal and maxillary sinuses. Lungs are clear, bedside ultrasound shows no infiltrate. Doubt pneumonia in this clinical scenario. COVID flu and RSV testing was negative. Suspect sinusitis, bacterial in nature. Will give a prescription for Augmentin for 14 days, will give nasal steroid, and recommend [place] pot at home. Discussed red flags for which to return. No evidence at this time to suggest dural venous sinus thrombosis, meningitis, septicemia. I have extensively reviewed the treatment plan and discharge instructions with the patient. I have addressed all patient concerns at this time. The patient was made aware of what symptoms to monitor for that would warrant a return to the emergency department. Discussed the plan with the patient, they demonstrate verbal understanding and agreement with our assessment and plan at this time. The documentation in this chart was dictated using ROI² dictation software. Please excuse any dictation errors. Quality:SDOH Health Related Social Needs: No Data to Display PFSH All Active Problems (Updated 06/10/24 @ 09:30 by Geovanny Cooper DO) URI (upper respiratory infection) (Acute) Sinusitis (Acute) Type 2 diabetes mellitus (Chronic) SHILPI (obstructive sleep apnea) (Chronic) Foreign body in nose (Acute) Surgical History (Updated 11/08/21 @ 15:13 by Lasha Byrd MD) S/p bilateral myringotomy with tube placement History of tonsillectomy and adenoidectomy Social History Smoking/Tobacco Use Status: Current every day Tobacco Type: cigarettes Smoking risk assessment performed?: Yes Alcohol Intake: current Alcohol Intake frequency: holidays/special occasions only Drug use: Occasionally Substance use type: marijuana Housing: other Do you feel safe at home: Yes Do you feel safe in your relationship?: Yes POCUS Exam (ED) Limited Thoracic Lung Exam DATE OF EXAM: 06/10/24 TIME OF EXAM: 18:25 PROVIDER THAT PERFORMED THE STUDY: Geovanny Cooper REASON FOR EXAM: Other (cough) indication: cough VISUALIZED STRUCTURES: right posterior and left posterior PERTINENT FINDINGS/IMPRESSION: No apparent abnormalities Exam complete
[2024-06-10 09:35] VITALS: BP 134/107; PULSE 113; RESP 18; TEMP 36.8; O2SAT 98
[2024-06-10 10:06] LABS: COVID-19 PCR Negative (Negative); Influenza A PCR Negative (Negative); Influenza B PCR Negative (Negative); RSV PCR Negative (Negative)
[2024-06-10 10:08] LABS: Source Nasopharynx
== END 2024-06-10 09:53 | disposition home or self-care (01) ==
LOC: ER 09:57
PROVIDERS: Emergency Provider Student in an Organized Health Care Education/Training Program; PCP Family Medicine
DX: J06.9 Acute upper respiratory infection, unspecified (principal); J01.10 Acute frontal sinusitis, unspecified; E11.9 Type 2 diabetes mellitus without complications; G47.33 Obstructive sleep apnea (adult) (pediatric); F17.210 Nicotine dependence, cigarettes, uncomplicated
CPT/HCPCS: 76604; 87637; 99283

== ENCOUNTER 2024-07-31 15:52 | Emergency (ER) | payer OTHER, SELFPAY ==
[2024-07-31] VITALS (20 sets, daily range): BP systolic 113–150; BP diastolic 65–95; PULSE 63–93; RESP 9–18; TEMP 36.5; O2SAT 97–99
--- NOTE | 2024-07-31 15:30 | RT.EKG_ITS ---
APPROVED REPORT Exam: Resting ECG Reason for Exam: chest pain Patient Location: E HR:82 bpm ECG Measurements Heart Rate 82 AXIS [place] 135 P 52 QRSd 83 QRS 73 QT 393 T 66 QTc 461 Conclusion Sinus rhythm...normal P axis, V-rate 60- 99 Physician: No Stemi
--- NOTE | 2024-07-31 15:47 | ED.GENADUL_ITS ---
Discharge Plan Disposition Patient Disposition: Home Condition: Stable Discharge Details Clinical Impression: Musculoskeletal chest pain Primary Care Provider: Alex Jon ED Provider: Geovanny Rodriguez Home Meds and New Rx's Prescriptions: Continued cyclobenzaprine 10 mg tablet 10 mg PO TID PRN Patient Comments: TAKE 1 TABLET BY MOUTH THREE TIMES DAILY NEEDED FOR SPASM gabapentin 100 mg capsule 100 mg PO TID Patient Comments: TAKE 1 CAPSULE BY MOUTH THREE TIMES DAILY triamcinolone acetonide [Nasacort] 55 mcg aerosol,spray 2 spray intranasal PRN Rx Instructions: administer into each nostril Discharge Instructions Instructions: Costochondritis, Chest Pain, Adult ED Additional Instructions: You were seen in the emergency department for your musculoskeletal chest pain, your cardiac workup is negative, your EKG is normal, your chest x-ray shows no acute abnormality we did rule out a blood clot in your lungs. You have chest pain that is worse with pressing on it indicating likely musculoskeletal chest pain but this also could be a pleurisy. Please take regular dose of Tylenol and ibuprofen, apply lidocaine patches to any areas of pain, these are [id number]. Please apply heat and ice to each area, please return for with any chest pain with dizziness, near fainting, shortness of breath, visual changes, severe nausea with chest pain or any other emergent concerns please follow-up with PCP referral to cardiology office as you have some family history of cardiac disease and could likely benefit from a routine scheduled visit with cardiology. Stand Alone Forms: Work Release Referrals: Alex Jon [Primary Care Provider] - Discharge Data Discharge Date/Time-TO BE ENTERED AT DEPARTURE: 07/31/24 18:04 HPI General Date/Time Provider Initiated Documentation: 07/31/24 16:01 . HPI Narrative: 38 year-old female presents to ED today with a chief complaint of chest pain with onset for the past 3 days, radiating to arm and back, with some sweating- recent PNA treatment. Quality described as sharp chest pains intermittently, no radiation to shortness of breath, near syncope, dizziness, active fever, abdominal pain, nausea. Severity is described as moderate. Palliating factors include nothing specific attempted. Provoking factors include nothing specific. Events leading up to the incident/Associated Symptoms: Patient states her aunt had an CO at 40. Patient not anticoagulated. Related Data Home Medications ?Medication ?Instructions ?Recorded ?Confirmed cyclobenzaprine 10 mg tablet 10 mg PO TID PRN 06/10/24 07/31/24 gabapentin 100 mg capsule 100 mg PO TID 06/10/24 07/31/24 triamcinolone acetonide 55 mcg 2 spray intranasal PRN 07/31/24 07/31/24 nasal spray aerosol (Nasacort) Allergies Allergy/AdvReac Type Severity Reaction Status Date / Time ciprofloxacin (From Cipro) AdvReac Severe Nausea Verified 07/31/24 15:44 metformin AdvReac Severe Diarrhea Verified 07/31/24 15:44 lisinopril AdvReac Unknown Unknown Verified 07/31/24 15:44 General Stated Complaint: Chest Pain TAMIKO: 3 Review of Systems All systems reviewed & are unremarkable except as noted in HPI and below Exam Narrative Exam Narrative: GENERAL APPEARANCE: Well-nourished, non-toxic, awake and alert, atraumatic, no acute distress. SKIN: Warm, pink, dry, intact, without rashes/lesions/ulcerations. HEAD: Normocephalic, atraumatic, normal hair distribution for gender/age. EYES: Normal conjunctiva, no exudates on lids/lashes. ENT: Nares patent, no circumoral cyanosis, no facial swelling NECK: Supple, trachea midline, painless cervical ROM. LUNGS/CHEST: Lungs CTA bilaterally, non-labored respirations, normal A/P diameter, symmetrical expansion, no chest wall deformity, mild pleuritic chest pain HEART (CV/PV): Regular rate and rhythm without murmur, no peripheral edema, no JVD. ABDOMEN: Soft, non-distended, no guarding. MSK: Normal ROM, no swelling/deformity to bilateral UEs or LEs, moving all extremities without weakness, no cyanosis, spine midline without tenderness, normal curvature. NEURO: Mental Status AAOx4 - alert to person, place, time, events No facial droop, no forehead involvement. Motor: No focal weakness - strength 5/5 in bilateral UEs and LEs, proximal and distal, symmetric. Sensory: sensation intact to light touch globally. Gait normal: patient ambulated without ataxia into ED room. PSYCH: euthymic, cooperative, pleasant, appropriate speech Course Vital Signs Vital signs: Vital Signs Temperature 36.5 C 07/31/24 15:39 Pulse 81 07/31/24 15:39 Respiratory Rate 14 07/31/24 15:39 Blood Pressure 150/87 H 07/31/24 15:39 Pulse Oximetry 99 07/31/24 15:39 Temperature 36.5 C 07/31/24 15:39 Temperature Source Temporal Artery Scan 07/31/24 15:39 Pulse 81 07/31/24 15:39 Respiratory Rate 14 07/31/24 15:39 Blood Pressure 150/87 H 07/31/24 15:39 Blood Pressure Position Sitting 07/31/24 15:39 Pulse Oximetry 99 07/31/24 15:39 Oxygen Delivery Method Room Air 07/31/24 15:39 Oxygen Flow Rate 0 07/31/24 15:39 Pain Level 8 07/31/24 15:39 Medical Decision Making This dictation utilizes [id number] dictation software and may contain unedited grammatical errors. 38 year-old female presents to ED today with a chief complaint of chest pain with onset for the past 3 days, radiating to arm and back, with some sweating- recent PNA treatment. Quality described as sharp chest pains intermittently, no radiation to shortness of breath, near syncope, dizziness, active fever, abdominal pain, nausea. Severity is described as moderate. Palliating factors include nothing specific attempted. Provoking factors include nothing specific. Events leading up to the incident/Associated Symptoms: Patient states her aunt had an CO at 40. Patients' medical history: T2DM. Family and social history: States her aunt had an CO at 40, otherwise noncontributory. Pertinent exam findings / vital signs include lungs CTA, benign cardiopulmonary exam, benign abdomen, mild pleuritic chest tenderness, nontoxic and afebrile. Differential / pathologies of concern include ACS, pleurisy, pneumonia, costochondritis, viral syndrome, PE, indigestion. Diagnostic studies of: - CBC, CMP, D-dimer, troponin, lipase, respiratory PCR swab, chest x-ray, EKG. - CBC shows no acute abnormality - CMP shows no actionable abnormality save for elevated glucose - D-dimer negative - Troponin negative with reliable onset - Lipase negative - Respiratory panel PCR swab negative - Chest x-ray completely clear - EKG shows no signs of ischemia Interventions of: -P.o. Tylenol, IV push Toradol, IV push Ativan for muscle relaxation, Lidoderm topical. ED Course/Assessment/Plan: 38-year-old female presents with chest pain for 3 days, has some family history of cardiac disease at 40 in aunt. Cardiac workup completely negative with reliable onset, patient has mildly pleuritic chest pain and no evidence of PE with a negative D-dimer, I do suspect musculoskeletal chest pain and advise she trial Tylenol and ibuprofen as well as warm compresses Lidoderm patches, strict return criteria for any worsening chest pain especially shortness of breath, dizziness, near fainting or any other emergent concerns. Findings not consistent with PE, right. Disposition of Musculoskeletal Chest Pain. Patient verbalized understanding of the plan and return to ED criteria and engaged in shared decision making. Medical Records Medical records reviewed: Yes I reviewed the patient's medical records. Imaging Data Radiologic Study: Attestation: I personally reviewed and interpreted this imaging study as follows: Imaging: X-Ray Radiologist's impression: EXAM: XR CHEST 2V PA LATERAL CLINICAL HISTORY: chest pain TECHNIQUE: 2D digital imaging was performed of the chest. Two images were obtained. PA and lateral views were obtained. COMPARISON: No exams were available for comparison FINDINGS: MEDIASTINUM: Normal. HEART: Normal. PULMONARY VASCULATURE: Normal. LUNGS: Clear. PLEURAL SPACE: No pleural effusion or pneumothorax. BONE:Within normal limits for the patient's age. OTHER FINDINGS:Normal. IMPRESSION: No acute pulmonary findings. Lab Data Lab results reviewed: Yes I reviewed the patient's lab results. Labs: Laboratory Tests Range/Units 07/31/24 07/31/24 15:52 16:05 WBC (4.4-10.8) 10^3/uL 9.71 RBC (3.93-5.22) 10^6/uL 4.55 Hgb (11.2-15.7) g/dL 14.2 Hct (36.0-46.0) % 41.6 MCV (80-95) fL 91 MCH (27.0-33.0) pg 31.2 MCHC (32.0-36.0) % 34.1 RDW (11.7-14.6) % 12.4 Plt Count (130-400) 10^3/uL 152 MPV (8.0-11.0) fL 12.2 H Immature Gran % % 0.3 Neutrophils % % 63.2 Lymphocytes % % 28.2 Monocytes % % 5.3 Eosinophils % % 2.4 Basophils % % 0.6 Nucleated RBC % (0.0-0.3) % 0.0 Absolute Neutrophils (1.2-6.7) 10^3/uL 6.14 Absolute Lymphocytes (1.2-3.4) 10^3/uL 2.74 Absolute Monocytes (0.1-0.8) 10^3/uL 0.51 Absolute Eosinophils (0.0-0.7) 10^3/uL 0.23 Absolute Basophils (0.0-0.2) 10^3/uL 0.06 D-Dimer (<500) ng/mlFEU 179 Sodium (136-145) mmol/L 140 Potassium (3.5-5.1) mmol/L 4.0 Chloride (98-107) mmol/L 105 Carbon Dioxide (21.0-32.0) mmol/L 27.0 Anion Gap (3-11) mmol/L 8.0 BUN (7-18) mg/dL 11 Creatinine (0.55-1.02) mg/dL 0.7 Est GFR (CKD-EPI 2020) (mL/min/1.73m2) 113.46 Glucose (74-106) mg/dL 224 H Calcium (8.5-10.1) mg/dL 9.0 Total Bilirubin (0.2-1.0) mg/dL 0.5 AST (15-37) U/L 10 L ALT (14-59) U/L 29 Alkaline Phosphatase (46-116) U/L 99 Troponin I (<or=51) ng/L < 4 Total Protein (6.4-8.2) g/dL 6.6 Albumin (3.4-5.0) g/dL 3.6 Lipase (<78) U/L 44 COVID-19 Source Nasopharynx SARS-CoV-2 (PCR) (Negative) Negative Influenza Type A (PCR) (Negative) Negative Influenza Type B (PCR) (Negative) Negative RSV (PCR) (Negative) Negative Quality:SDOH Health Related Social Needs: No Data to Display PFSH All Active Problems (Updated 07/31/24 @ 17:37 by ANETTE Dominguez) Musculoskeletal chest pain (Acute) Type 2 diabetes mellitus (Chronic) SHILPI (obstructive sleep apnea) (Chronic) Foreign body in nose (Acute) Surgical History (Updated 08/04/22 @ 15:13 by Lasha Byrd MD) S/p bilateral myringotomy with tube placement History of tonsillectomy and adenoidectomy Social History Smoking/Tobacco Use Status: Current every day Tobacco Type: cigarettes Smoking risk assessment performed?: Yes Alcohol Intake: current Alcohol Intake frequency: holidays/special occasions only Drug use: Occasionally Substance use type: marijuana Housing: other Do you feel safe at home: Yes Do you feel safe in your relationship?: Yes
[2024-07-31 16:07] LABS: Abs Immature Grans 0.03 10^3/uL (0.0-0.06); Absolute Basophil Count 0.06 10^3/uL (0.0-0.2); Absolute Eosinophil Count 0.23 10^3/uL (0.0-0.7); Absolute Lymphocyte Count 2.74 10^3/uL (1.2-3.4); Absolute Monocyte Count 0.51 10^3/uL (0.1-0.8); Absolute Neutrophil Count 6.14 10^3/uL (1.2-6.7); Basophils % 0.6 %; Eosinophils % 2.4 %; HCT 41.6 % (36.0-46.0); HGB 14.2 g/dL (11.2-15.7); Immature Grans % 0.3 %; Lymphocytes % 28.2 %; MCH 31.2 pg (27.0-33.0); MCHC 34.1 % (32.0-36.0); MCV 91 fL (80-95); MPV 12.2 fL (8.0-11.0); Monocytes % 5.3 %; Neutrophils % 63.2 %; Platelet Count 152 10^3/uL (130-400); RBC 4.55 10^6/uL (3.93-5.22); RDW 12.4 % (11.7-14.6); RDW-SD 41.2 fL; WBC 9.71 10^3/uL (4.4-10.8)
[2024-07-31] MEDS: Acetaminophen 500 MG TAB 1000 MG PO (16:13)
[2024-07-31 16:33] LABS: ALT 29 U/L (14-59); AST 10 U/L (15-37); Albumin 3.6 g/dL (3.4-5.0); Alkaline Phosphatase 99 U/L (46-116); BUN 11 mg/dL (7-18); Bilirubin, Total 0.5 mg/dL (0.2-1.0); CREATININE 0.7 mg/dL (0.55-1.02); Chloride 105 mmol/L (98-107); Estimated GFR 113.46 (mL/min/1.73m2); Glucose 224 mg/dL (74-106); Lipase 44 U/L (<78); Sodium 140 mmol/L (136-145); Total Protein 6.6 g/dL (6.4-8.2)
[2024-07-31 16:37] LABS: Troponin I < 4 ng/L (<or=51)
[2024-07-31 16:41] LABS: D-Dimer 179 ng/mlFEU (<500)
[2024-07-31 16:53] LABS: COVID-19 PCR Negative (Negative); Influenza A PCR Negative (Negative); Influenza B PCR Negative (Negative); RSV PCR Negative (Negative)
[2024-07-31 16:54] LABS: Source Nasopharynx
--- NOTE | 2024-07-31 17:00 | DI.RAD_ITS ---
Exam(s) XR CHEST 2V PA LATERAL EXAM: XR CHEST 2V PA LATERAL CLINICAL HISTORY: chest pain TECHNIQUE: 2D digital imaging was performed of the chest. Two images were obtained. PA and lateral views were obtained. COMPARISON: No exams were available for comparison FINDINGS: MEDIASTINUM: Normal. HEART: Normal. PULMONARY VASCULATURE: Normal. LUNGS: Clear. PLEURAL SPACE: No pleural effusion or pneumothorax. BONE:Within normal limits for the patient's age. OTHER FINDINGS:Normal. IMPRESSION: No acute pulmonary findings. DATA REPOSITORY: RADIATION DOSE DELIVERED:
[2024-07-31] MEDS: Ketorolac 15 MG/ML VIAL IVP (17:46)
[2024-07-31] MEDS: LORazepam 2 MG/ML VIAL 1 MG IVP (17:46)
[2024-07-31] MEDS: Lidocaine 5% Patch 1 PATCH TP (17:47)
== END 2024-07-31 18:04 | disposition home or self-care (01) ==
PROVIDERS: Emergency Provider Physician Assistant; PCP Family Medicine
DX: R07.89 Other chest pain (principal); E11.9 Type 2 diabetes mellitus without complications; F17.210 Nicotine dependence, cigarettes, uncomplicated
CPT/HCPCS: 36415; 80053; 83690; 87637; 93005; 96374; 96375; 99285; 71046; 84484; 85025; 85379; 93010; 99284; J1885; J2060

== ENCOUNTER 2025-02-11 12:42 | Emergency (ER) | payer OTHER, SELFPAY ==
[2025-02-11] VITALS (29 sets, daily range): BP systolic 114–189; BP diastolic 60–170; PULSE 45–108; RESP 10–23; TEMP 36.6; O2SAT 91–99
--- NOTE | 2025-02-11 13:00 | DI.CT_ITS ---
Exam(s) CT ABDOMEN PELVIS W EXAM: CT ABDOMEN PELVIS W CLINICAL HISTORY: recent splenic lac with intervention [facility] [place]. TECHNIQUE: Imaging Protocol: Axial computed tomography images with coronal and sagittal reformatted images were created and reviewed CONTRAST MATERIAL: Intravenous: Omnipaque-350 75cc Oral: None COMPARISON: CT CT ABDOMEN PELVIS W from 04/13/2024 CR XR CHEST 2V PA LATERAL from 07/31/2024 FINDINGS: VISUALIZED LUNG BASES: No infiltrates nor lung contusion nor pleural effusions evident. No rib fractures seen. Previously described cystic structure adjacent to the right heart border is again noted and is most probably a pericardial cyst. ABDOMEN: There is no ascites and there is no evidence of bowel wall nor mesenteric hematoma, given the recent trauma history here. LIVER: Intact. No lacerations nor lesions. There are again noted some dilated intrahepatic ducts in this patient has had prior cholecystectomy, this unchanged from CT scan of 04/13/2024. GALLBLADDER/BILIARY: Gallbladder is again noted be surgically absent. CBD diameter minimally prominent above the pancreatic head level. Normal diameter within the pancreatic head level. There is no evidence of radiopaque calculus nor mass in the CBD and no pancreatic head mass. PANCREAS: No evidence of pancreatic mass nor dilatation of the pancreatic duct. Single small parenchymal calcification is again noted in the uncinate process, not associated with mass. 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 Splenic vein is patent.. Spleen is abnormal in that there is now large subcapsular collection over the lateral aspect of the spleen which measures 13 cm craniocaudal by 5 cm wide by 10 cm AP, exhibiting homogeneous density averaging 31 HU. Hypodense linear findings in the more medially enhance spleen are some the lacerations sustained on the prior injury. There does not appear to be an obvious arterial blush at this time. The splenic vein is patent and exhibits upper normal diameter. Portal vein also patent. ADRENALS: Left adrenal gland unremarkable. There is a E nodule at the genu of the right adrenal gland measuring 1.6 x 1.0 cm, similar to 04/13/2024 and probably an incidental adenoma. KIDNEYS:Intact. There are no renal lacerations nor evidence of subcapsular hematomas in the kidneys. No cysts nor solid renal masses. No calculi. No hydronephrosis.. ABDOMINAL AORTA: Intact. Normal size. No evidence of periaortic hematoma. No dissection. LYMPH NODES:There is no retroperitoneal nor paraaortic adenopathy. ABDOMINAL WALL: No evidence of significant anterior abdominal wall nor inguinal hernia. No subcutaneous bruising. GI: There is no evidence of bowel obstruction, free air, nor abscess. PELVIS: GI: No evidence of appendicitis.No evidence of significant sigmoid diverticular disease. LYMPH NODES: There is no intrapelvic nor inguinal adenopathy. REPRODUCTIVE: The uterus is again noted to be surgically absent. There is now a cyst in left ovary which measures 4.1 x 3.9 by 3.8 cm, not previously present. There are also smaller cysts evident in the right ovary, 1 of which is peripherally enhancing and most probably corpus luteal cyst measuring 1.5 x 1.4 cm. URINARY BLADDER: No calculi nor obvious masses evident. No intraluminal clots. There is some mild streaking anterior to the urinary bladder which was not evident in April 2024. OSSEOUS: No fractures and no significant osseous lesions. Chronic degenerative disc disease at L5-S1 level again noted. IMPRESSION: 1. Compared to prior CT scan of 04/13/2024 there has been interval splenic injury. 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 There does not appear to be obvious active bleeding but there is a large subcapsular hematoma in the spleen m easuring approximately 13 x 5 x 10 cm 2. No injury findings in the liver and kidneys and no evidence of bowel wall hematoma nor mesenteric hematomas in the upper abdomen and no left rib fractures evident.. 3. Uterus is again noted be surgically absent. There is a new 4.1 x 3.9 x 3.8 cm cyst in the left ovary and there are smaller cysts in the right ovary including a 1.5 x 1.4 cm peripherally enhancing corpus luteal cyst now evident. There is no free fluid in the pelvis. 4. There is some mild streaking in the fat anterior to the urinary bladder which was not evident in April 2024. The appearance of the bladder wall (cystitis appearance in April 2024) has otherwise improved and there is no evidence of obvious pyelonephritis findings in the kidneys. 5. Gallbladder is again noted be surgically absent. There is mild dilatation of intrahepatic ducts in the upper CBD which is unchanged from April 2024. Findings called by myself to ER provider 02/11/2025 2:45 p.m. RADIATION DOSE DELIVERED: 475.7mGy.cm Total DLP DATA REPOSITORY: All CT scans at this facility are submitted to the National Radiology Data Registry (NRDR) Dose Index Registry (DIR) with the [employer] ([employer]). RADIATION OPTIMIZATION: All CT scans at this facility use at least one of these dose optimization techniques: automated exposure control; mA and/or kV adjustment per patient size (includes targeted exams where dose is matched to clinical indication); or iterative reconstruction.
--- NOTE | 2025-02-11 13:00 | RT.EKG_ITS ---
APPROVED REPORT Exam: Resting ECG Reason for Exam: abd pain Patient Location: E HR:96 bpm ECG Measurements Heart Rate 96 AXIS TN 138 P 64 QRSd 88 QRS 57 QT 368 T 61 QTc 464 Conclusion Sinus tachycardia...rate> 99 Ventricular trigeminy...trigeminy string>6 w/ V complexes No STEMI
[2025-02-11 13:27] LABS: Abs Immature Grans 0.07 10^3/uL (0.0-0.06); HCT 35.6 % (36.0-46.0); HGB 11.6 g/dL (11.2-15.7); Immature Grans % 0.6 %; MCH 29.9 pg (27.0-33.0); MCHC 32.6 % (32.0-36.0); MCV 92 fL (80-95); MPV 11.6 fL (8.0-11.0); Platelet Count 249 10^3/uL (130-400); RBC 3.88 10^6/uL (3.93-5.22); RDW 13.2 % (11.7-14.6); RDW-SD 43.6 fL; WBC 12.08 10^3/uL (4.4-10.8)
[2025-02-11] MEDS: HYDROmorphone 2 MG/ML SYR 1 MG IVP ×2 (13:29→14:45)
[2025-02-11 13:34] LABS: BE (Venous) 0 mmol/L (-2-3); HCO3 (Venous) 25 mmol/L (23-28); O2 Sat (Venous) 82 %; TCO2 (Venous) 22 mmol/L (24-29); pCO2 (Venous) 40 mmHg (41-51); pO2 (Venous) 44 mmHg
[2025-02-11 13:52] LABS: ALT 20 U/L (14-59); AST 10 U/L (15-37); Albumin 3.5 g/dL (3.4-5.0); Alkaline Phosphatase 108 U/L (46-116); Anion Gap 7.9 mmol/L (3-11); BUN 14 mg/dL (7-18); Bilirubin, Total 0.4 mg/dL (0.2-1.0); CO2 25.1 mmol/L (21.0-32.0); Calcium 9.0 mg/dL (8.5-10.1); Chloride 105 mmol/L (98-107); Glucose 206 mg/dL (74-106); Lipase 32 U/L (<78); Potassium 4.0 mmol/L (3.5-5.1); Sodium 138 mmol/L (136-145); Total Protein 7.8 g/dL (6.4-8.2); Troponin I 6 ng/L (<or=51)
[2025-02-11 14:00] LABS: Magnesium 1.9 mg/dL (1.8-2.4); TSH (W/Ref FT4) 0.64 uIU/mL (0.36-3.74)
[2025-02-11] MEDS: Normal Saline Flush 10 ML SYR IVP (14:09)
[2025-02-11] MEDS: Normal Saline - Diluent 50 ML VIAL IJ (14:09)
[2025-02-11] MEDS: Omnipaque 350 MG/ML 500 ML BTL-Imaging package IJ (14:09)
[2025-02-11] MEDS: Ondansetron 4 MG/2 ML VIAL IVP ×2 (14:46→16:19)
[2025-02-11 14:49] LABS: Glucose Negative (Negative)
--- NOTE | 2025-02-11 14:50 | DI.US_ITS ---
Exam(s) US PELVIS TRANSVAGINAL EXAM: US PELVIS TRANSVAGINAL CLINICAL HISTORY: left lower quadrant pain 4cm TECHNIQUE: Ultrasound of the pelvis was performed both transabdominal and transvaginal. COMPARISON: US POCUS EXAM from 06/10/2024 FINDINGS: UTERUS: Uterus is surgically absent. LEFT OVARY: Measures 4.6 x 3.5 x 4.3 cm Contains a simple anechoic cyst measuring 3.8 x 3.3 x 3.2 cm. Also another smaller cyst measuring 1.3 by 0.8 cm.. Vascular flow was demonstrated in the left ovary and there is no free fluid around the ovary. RIGHT OVARY: Measures 3.5 x 3.0 x 3.1 cm Limited visualization due to adjacent bowel gas but no large cysts. CUL-DE-SAC: No free fluid evident. IMPRESSION: 1. The uterus is surgically absent. 2. There is a simple anechoic cyst in the left ovary measuring 3.8 x 3.3 x 3.2 cm. No evidence of ovarian torsion at this time 3. Right ovary contains smaller cysts but difficult to evaluate accurately as there is adjacent bowel gas. Please see CT scan report from today. DATA REPOSITORY:
[2025-02-11 14:58] LABS: Troponin I 4 ng/L (<or=51)
[2025-02-11 15:04] LABS: C & S Indicated? Yes; RBC Negative HPF (0-2)
[2025-02-11] MEDS: HYDROmorphone 2 MG/ML SYR 0.5 MG IVP (15:35)
--- NOTE | 2025-02-11 15:40 | ED.GENADUL_ITS ---
Discharge Plan Discharge Details Chief Complaint: Abd Prob Primary Care Provider: Alex Jon ED Provider: Irma Murray Home Meds and New Rx's Prescriptions: No Action cyclobenzaprine 10 mg tablet 10 mg PO TID PRN Patient Comments: TAKE 1 TABLET BY MOUTH THREE TIMES DAILY NEEDED FOR SPASM gabapentin 100 mg capsule 100 mg PO TID Patient Comments: TAKE 1 CAPSULE BY MOUTH THREE TIMES DAILY HPI General Date/Time Provider Initiated Documentation: 02/11/25 13:00 . HPI Narrative: This 39-year-old female with history of [id number] diabetes presents with report of abdominal pain that started while she was at work. She states she has had some pain since a prior fall with a grade 4 splenic laceration which received intervention at [facility] she was been discharged for a few weeks now. She denies any known additional trauma she states she feels lightheaded. She denies any chest pain or shortness of breath Related Data Home Medications Medication Instructions Recorded Confirmed cyclobenzaprine 10 mg tablet 10 mg PO TID PRN 06/10/24 02/11/25 gabapentin 100 mg capsule 100 mg PO TID 06/10/2402/11 Allergies Allergy/AdvReac Type Severity Reaction Status Date / Time ciprofloxacin (From Cipro) AdvReac Severe Nausea Verified 02/11/25 12:49 metformin AdvReac Severe Diarrhea Verified 02/11/25 12:49 morphine AdvReac Intermediate Other (See Verified 02/11/25 12:49 Comment) lisinopril AdvReac Unknown Unknown Verified 02/11/25 12:49 General Stated Complaint: Abd Prob TAMIKO: 3 Exam Narrative Exam Narrative: Alert and oriented in acute distress, tenderness with palpation left upper quadrant left lower quadrant, no CVA tenderness no ecchymosis cardiac rate rhythm regular, distal pulses intact, answering questions appropriately Course Vital Signs Vital signs: Vital Signs Temperature 36.6 C 02/11/25 12:45 Pulse 55 L 02/11/25 12:45 Respiratory Rate 18 02/11/25 12:45 Blood Pressure 166/109 H 02/11/25 12:45 Pulse Oximetry 98 02/11/25 12:45 Temperature 36.6 C 02/11/25 12:45 Temperature Source Tympanic 02/11/25 12:45 Pulse 55 L 02/11/25 12:45 Respiratory Rate 18 02/11/25 12:45 Blood Pressure 166/109 H 02/11/25 12:45 Pulse Oximetry 98 02/11/25 12:45 Oxygen Delivery Method Room Air 02/11/25 12:45 Oxygen Flow Rate 0 02/11/25 12:45 Pain Level 9 02/11/25 12:45 Lab/Test Results Lab/Test Results: 02/11/25 14:30 Urine - Reflex from Ua Urine Culture - Pending Laboratory Tests Range/Units 02/11/25 02/11/25 13:23 14:30 WBC (4.4-10.8) 10^3/uL 12.08 H RBC (3.93-5.22) 10^6/uL 3.88 L Hgb (11.2-15.7) g/dL 11.6 Hct (36.0-46.0) % 35.6 L MCV (80-95) fL 92 MCH (27.0-33.0) pg 29.9 MCHC (32.0-36.0) % 32.6 RDW (11.7-14.6) % 13.2 Plt Count (130-400) 10^3/uL 249 MPV (8.0-11.0) fL 11.6 H Immature Gran % % 0.6 Neutrophils % % 61.2 Lymphocytes % % 28.6 Monocytes % % 5.5 Eosinophils % % 3.4 Basophils % % 0.7 Nucleated RBC % (0.0-0.3) % 0.0 Absolute Neutrophils (1.2-6.7) 10^3/uL 7.39 H Absolute Lymphocytes (1.2-3.4) 10^3/uL 3.45 H Absolute Monocytes (0.1-0.8) 10^3/uL 0.66 Absolute Eosinophils (0.0-0.7) 10^3/uL 0.41 Absolute Basophils (0.0-0.2) 10^3/uL 0.08 VBG pH (7.31-7.41) 7.39 VBG pCO2 (41-51) mmHg 40 L VBG pO2 mmHg 44 VBG HCO3 (23-28) mmol/L 25 VBG Total CO2 (24-29) mmol/L 22 L VBG O2 Saturation % 82 VBG Base Excess (-2-3) mmol/L 0 VBG Lactate (<or=2.0) mmol/L 1.0 Sodium (136-145) mmol/L 138 Potassium (3.5-5.1) mmol/L 4.0 Chloride (98-107) mmol/L 105 Carbon Dioxide (21.0-32.0) mmol/L 25.1 Anion Gap (3-11) mmol/L 7.9 BUN (7-18) mg/dL 14 Creatinine (0.55-1.02) mg/dL 0.7 Est GFR (CKD-EPI 2020) (mL/min/1.73m2) 112.75 Glucose (74-106) mg/dL 206 H Calcium (8.5-10.1) mg/dL 9.0 Magnesium (1.8-2.4) mg/dL 1.9 Total Bilirubin (0.2-1.0) mg/dL 0.4 AST (15-37) U/L 10 L ALT (14-59) U/L 20 Alkaline Phosphatase (46-116) U/L 108 Troponin I (<or=51) ng/L 6 4 Total Protein (6.4-8.2) g/dL 7.8 Albumin (3.4-5.0) g/dL 3.5 Lipase (<78) U/L 32 TSH (0.36-3.74) uIU/mL 0.64 Urine Color (Yellow) Yellow Urine Clarity (Clear) Sl Cloudy Urine pH (5-8) 5.5 Ur Specific [place] (1.005-1.025) 1.015 Urine Protein (Neg-Trace) mg/dL Negative Urine Ketones (Negative) mg/dL Negative Urine Blood (Negative) Negative Urine Nitrite (Negative) Positive H Urine Bilirubin (Negative) Negative Urine Urobilinogen (Up to 0.2) mg/dL 0.2 Ur Leukocyte Esterase (Negative) Negative Urine RBC (0-2) HPF Negative Urine WBC (0-5) HPF 5-10 Ur Epithelial Cells (Negative) HPF Rare Urine Crystals (Negative) HPF Negative Urine Bacteria (Negative) HPF Many Urine Casts (Negative) LPF Negative Urine Mucus (Negative) Heavy Urine Other (Negative) Negative Ur Culture Indicated? Yes Urine Glucose (Negative) mg/dL Negative Medical Decision Making Results: Patient CBC hemoglobin and hematocrit stable in fact significantly improved from discharge at [facility] of 9.6 hemoglobin 11.6 ABG lactate chemistry all within normal limits with a mildly elevated glucose of 206 CT abdomen and pelvis discussed with Dr. Hernández, radiology:Compared to prior CT scan of 04/13/2024 there has been interval splenic injury. 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 There does not appear to be obvious active bleeding but there is a large subcapsular hematoma in the spleen measuring approximately 13 x 5 x 10 cm 2. No injury findings in the liver and kidneys and no evidence of bowel wall hematoma nor mesenteric hematomas in the upper abdomen and no left rib fractures evident.. 3. Uterus is again noted be surgically absent. There is a new 4.1 x 3.9 x 3.8 cm cyst in the left ovary and there are smaller cysts in the right ovary including a 1.5 x 1.4 cm peripherally enhancing corpus luteal cyst now evident. There is no free fluid in the pelvis. 4. There is some mild streaking in the fat anterior to the urinary bladder which was not evident in April 2024. The appearance of the bladder wall (cystitis appearance in April 2024) has otherwise improved and there is no evidence of obvious pyelonephritis findings in the kidneys. 5. Gallbladder is again noted be surgically absent. There is mild dilatation of intrahepatic ducts in the upper CBD which is unchanged from April 2024. Assessment and plan: Patient has required numerous doses of IV pain medication, interestingly she does request Dilaudid, she did receive a single dose of Zofran seems to be resting comfortably at this time. She has remained hemodynamically stable. I have a call out to [facility] trauma further evaluation of CT scan given recent embolization and large subcapsular hematoma. Also noted was a large ovarian cyst in the left adnexal region, will order pelvic ultrasound to exclude torsion. I discussed the case with Dr. Mayorga, trauma surgeon on-call at [facility] and he states she is patient may be experiencing some capsular pain from the hematoma. Patient may need a longer reprieve from work. Patient does have a left ovarian 4 cm cyst and this may be contributing to some of her disc omfort, will order ovarian ultrasound to exclude torsion and then patient will likely be discharged home. I written for 2 oxycodone at home as patient is allergic to morphine. PFSH All Active Problems (Updated 08/31/24 @ 00:03 by CARMINA LYNN) Type 2 diabetes mellitus (Chronic) SHILPI (obstructive sleep apnea) (Chronic) Foreign body in nose (Acute) Surgical History (Updated 11/08/21 @ 15:13 by Lasha Byrd MD) S/p bilateral myringotomy with tube placement History of tonsillectomy and adenoidectomy Social History Smoking/Tobacco Use Status: Current every day Tobacco Type: cigarettes Smoking risk assessment performed?: Yes Alcohol Intake: current Alcohol Intake frequency: holidays/special occasions only Drug use: Occasionally Substance use type: marijuana Housing: other Do you feel safe at home: Yes Do you feel safe in your relationship?: Yes
[2025-02-11] MEDS: oxyCODONE 10 MG TAB PO (16:19)
[2025-02-11] MEDS: Prochlorperazine 10 MG/2 ML VIAL 5 MG IVP (17:06)
[2025-02-11] MEDS: oxyCODONE 5 MG TAB 20 MG PO (17:35)
[2025-02-11] MEDS: Ondansetron O.D.T. 4 MG TABEF, 3 TABS/BTL PO (17:35)
--- NOTE | 2025-02-13 07:44 | NUR.NOTE ---
Access chart to determine antibiotic on discharge for urine culture. Result given to provider. Nursing Note:
--- NOTE | 2025-02-13 13:05 | NUR.NOTE ---
Access chart to get patient's address for letter sent by provider notifying her of the UTI and that RX sent to pharmacy. Nursing Note:
--- NOTE | 2025-02-13 16:06 | NUR.NOTE ---
Access chart to reconcile EKG orders with EKG's in [facility]. Duplicate order cancelled. Nursing Note:
== END 2025-02-11 17:39 | disposition home or self-care (01) ==
PROVIDERS: Physician Assistant; Emergency Provider Physician Assistant; PCP Family Medicine
DX: R10.9 Unspecified abdominal pain (principal); R42 Dizziness and giddiness; N83.202 Unspecified ovarian cyst, left side
CPT/HCPCS: 99284; 99285; 36415; 96374; 96375; 96376; 80053; 82805; 83690; 86850; 86900; 86901; 87077; 93005; 74177; 76830; 76856; 81003; 81015; 83605; 83735; 84443; 84484; 85025; 87086; 87186; 93010; J0780; J1171; J2405

== ENCOUNTER 2025-04-03 20:10 | Emergency (ER) | payer OTHER, SELFPAY ==
[2025-04-03 20:16] VITALS: BP 132/83; PULSE 94; RESP 18; TEMP 36.5; O2SAT 96
--- NOTE | 2025-04-03 21:00 | DI.CT_ITS ---
Exam(s) CT ABDOMEN PELVIS W EXAM: CT ABDOMEN PELVIS W CLINICAL HISTORY: hx of spleen injury, now with worse pain. TECHNIQUE: Imaging Protocol: Axial computed tomography images with coronal and sagittal reformatted images were created and reviewed CONTRAST MATERIAL: Intravenous: Omnipaque 350 Contrast volume:75 ml Oral: no COMPARISON: CT CT ABDOMEN PELVIS W from 02/11/2025 FINDINGS: ABDOMEN and PELVIS: Lung Bases: No acute findings. Pericardial cyst again noted. Liver: Normal density. No suspicious mass. Gallbladder and biliary tract: Cholecystectomy. No biliary dilation. Pancreas: Normal density. No abnormal calcifications or inflammatory process. No evidence of mass. Spleen: History of prior trauma. Splenic artery embolization coils again noted. Interval decreased size of the previously noted lateral subcapsular splenic collection. No evidence active contrast extravasation. Kidneys: Normal size, contour and axis. No radiodense stones. No obstructive uropathy. No suspicious masses seen. Adrenal glands: Stable right adrenal adenoma. No follow-up recommended. Vasculature: Abdominal aorta non-dilated. The portal vein is patent. Soft tissues: Unremarkable. Bladder: Nearly empty. No gross wall thickening. No calculi.No focal mass. Bowel: No obstruction. No bowel wall thickening. Appendix normal.Normal quantity of stool. Peritoneal cavity: No ascites. No focal collection. No mesenteric inflammatory response. No free air. Bones: Degenerative changes are again noted at L5-S1. Reproductive organs: Hysterectomy. Decreased size previously noted left ovarian cyst. Lymph nodes: No pathologically enlarged lymph nodes. IMPRESSION:: No acute abnormality in the abdomen or pelvis. Decreased size of previously noted subcapsular splenic collection. No evidence of active hemorrhage. The preliminary [facility] report was reviewed. RADIATION DOSE DELIVERED: Total DLP DATA REPOSITORY: All CT scans at this facility are submitted to the National Radiology Data Registry (NRDR) Dose Index Registry (DIR) with the [employer] (A[employer]). RADIATION OPTIMIZATION: All CT scans at this facility use at least one of these dose optimization techniques: automated exposure control; mA and/or kV adjustment per patient size (includes targeted exams where dose is matched to clinical indication); or iterative reconstruction.
[2025-04-03 21:15] LABS: Abs Immature Grans 0.05 10^3/uL (0.0-0.06); HCT 40.7 % (36.0-46.0); HGB 13.6 g/dL (11.2-15.7); Immature Grans % 0.4 %; MCH 30.0 pg (27.0-33.0); MCHC 33.4 % (32.0-36.0); MCV 90 fL (80-95); MPV 12.0 fL (8.0-11.0); Platelet Count 182 10^3/uL (130-400); RBC 4.54 10^6/uL (3.93-5.22); RDW 12.8 % (11.7-14.6); RDW-SD 42.3 fL; WBC 12.89 10^3/uL (4.4-10.8)
[2025-04-03] MEDS: Ketorolac 15 MG/ML VIAL IVP (21:20)
[2025-04-03] MEDS: ACETAMINOPHEN 1,000 MG/100 ML BAG 400 MG IVPB (21:20)
[2025-04-03 21:21] LABS: Glucose Negative (Negative)
[2025-04-03 21:29] LABS: C & S Indicated? No; RBC 0-2 HPF (0-2)
[2025-04-03 21:34] LABS: ALT 16 U/L (10-49); AST 13 U/L (<34); Albumin 4.3 g/dL (3.2-5.0); Alkaline Phosphatase 71 U/L (46-116); Anion Gap 5 mmol/L (3-11); BUN 13 mg/dL (9-23); Bilirubin, Total 0.4 mg/dL (0.2-1.2); CO2 26.0 mmol/L (20.0-31.0); Calcium 9.3 mg/dL (8.3-10.6); Chloride 109 mmol/L (98-107); Glucose 161 mg/dL (74-106); Potassium 3.6 mmol/L (3.5-5.1); Sodium 140 mmol/L (136-145); Total Protein 7.0 g/dL (5.7-8.2)
[2025-04-03] MEDS: Omnipaque 350 MG/ML 100 ML BTL IJ (21:35)
[2025-04-03] MEDS: Normal Saline Flush 10 ML SYR IVP (21:36)
[2025-04-03] MEDS: Normal Saline - Diluent 50 ML VIAL IJ (21:36)
--- NOTE | 2025-04-03 22:05 | DI.[facility]_ITS ---
PROCEDURE INFORMATION: Exam: CT Abdomen And Pelvis With Contrast Exam date and time: 04/03/2025 9:36 PM Age: 39 years old Clinical indication: Abdominal pain; Localized; Left; Spleen injury 2 months ago, now with worse pain TECHNIQUE: Imaging protocol: Computed tomography of the abdomen and pelvis with contrast. Radiation optimization: All CT scans at this facility use at least one of these dose optimization techniques: automated exposure control; mA and/or kV adjustment per patient size (includes targeted exams where dose is matched to clinical indication); or iterative reconstruction. Contrast material: OMNIPAQUE 350; Contrast volume: 75 ml; Contrast route: INTRAVENOUS (IV); COMPARISON: US PELVIS TRANSVAGINAL 02/11/2025 3:25 PM FINDINGS: Lungs: Lung bases clear. Heart: 3.7 cm x 2.4 cm oval hypoattenuating lesion abutting the heart in the right cardiophrenic angle measuring 11.5 cm on image 4 of series 8 with an appearance and location suggesting a pericardial cyst. Liver: Normal appearing liver. Gallbladder and biliary ducts: Prior cholecystectomy. No biliary dilatation. Pancreas: Normal appearing pancreas. Spleen: 6.5 cm x 3.0 cm x 5.2 cm subcapsular splenic collection measuring 27 Hounsfield units density extending along the posterior aspect of the spleen, presumably the residua of a subcapsular hematoma given the provided clinical history. No evidence of active bleeding. Only trace if any adjacent fluid. Adrenal glands: Normal-appearing left adrenal gland. 1.0 cm right adrenal nodule with a density of 94 Hounsfield units on image 27 of series 8. Correlation with prior imaging recommended to document stability of size versus MRI with chemical shift imaging for definitive evaluation. Kidneys and ureters: Normal appearing kidneys. No hydronephrosis. No obstructing ureteral stones. Stomach and bowel: Stomach partially distended with fluid and ingested material. No small bowel dilatation to suggest obstruction. Normal-appearing colon. No evidence of diverticulitis or colitis. Appendix: Normal appendix. Intraperitoneal space: Trace free fluid. No free air. Vasculature: Normal caliber abdominal aorta. Lymph nodes: No pathologically enlarged mesenteric, retroperitoneal, or pelvic sidewall lymph nodes. Urinary bladder: Urinary bladder partially collapsed but grossly unremarkable, as seen. Reproductive: Prior hysterectomy. Right ovary partially obscured but normal in size. 1.5 cm dominant right ovarian follicle on image 76 of series 8. Left ovary well-visualized and normal in size. 2.2 cm dominant left ovarian follicle on image 82 of series 8. Adjacent 1.5 cm dominant follicle on image 80 of series 8. Suggestion of trace adjacent fluid. Bones/joints: No acute fracture seen among the bones of the abdomen or pelvis. Spinal degenerative change with anterior and posterior osteophytes at several levels. Prominent discogenic degeneration at L5-S1. Soft tissues: Tiny fat-containing ventral hernia at the umbilicus, doubtful clinical significance. IMPRESSION: 1. 6.5 cm x 3.0 cm x 5.2 cm relatively low-density subcapsular splenic collection, presumably the residua of a subcapsular hematoma given the provided clinical history. No evidence of active bleeding. Only trace if any adjacent fluid. 2. Bilateral ovarian follicles, as described. Trace pelvic fluid. Prior hysterectomy. 3. No acute bowel pathology demonstrated. Dictated and Authenticated by: Mick Chavez MD. Orderin Katie Bello MD
--- NOTE | 2025-04-03 22:32 | ED.GENADUL_ITS ---
Discharge Plan Disposition Patient Disposition: Home Discharge Details Clinical Impression: Abdominal pain, left upper quadrant Primary Care Provider: Alex Jon ED Provider: Ace Wilson Home Meds and New Rx's Prescriptions: No Action cyclobenzaprine 10 mg tablet 10 mg PO TID PRN Patient Comments: TAKE 1 TABLET BY MOUTH THREE TIMES DAILY NEEDED FOR SPASM gabapentin 100 mg capsule 100 mg PO TID Patient Comments: TAKE 1 CAPSULE BY MOUTH THREE TIMES DAILY cefdinir 300 mg capsule 300 mg PO BID Qty: 14 0RF Discharge Instructions Instructions: Abdominal Pain, Adult ED Additional Instructions: Please follow-up with your primary care provider regarding your visit to the emergency department today. Be sure to discuss results of all test performed here today to include radiology, and laboratory testing as well as results for any pending cultures. Should your symptoms worsen, or if you develop new concerning symptoms, please return immediately emergency department for further evaluation. Stand Alone Forms: Portal Information, Work Release Discharge Data Discharge Date/Time-TO BE ENTERED AT DEPARTURE: 04/03/25 22:59 HPI General Date/Time Provider Initiated Documentation: 04/03/25 20:49 . 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 Vital signs within normal limits. Patient with reproducible pain of left upper quadrant. Given increase in pain, and known prior injury, concern for possible spontaneous splenic injury. Patient denies any infectious symptoms to suggest acute intra- abdominal infection pneumonia. Patient has no risk factors for PE and is PERC negative. Will obtain screening labs and CT to evaluate for cause of patient's pain. ED course: No acute findings on CT. Patient with a leukocytosis which is similar to her prior blood work, unsure as to the significance of this finding however again patient denies any acute infectious symptoms to suggest acute infection, was instructed to follow-up primary care for further blood work. 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 She notes the pain steadily builds up during her shift today and she had to leave work early because she was in so much pain. Denies any associated nausea, vomiting, chest pain, shortness of breath or any other new or concerning symptoms. ROS: Negative besides as mentioned above Exam: Gen: A&O NAD HEENT: NCAT, EOMI, not icteric. External ears normal. No rhinorrhea. Moist mucous membranes. Neck: Supple, full range of motion, no observable masses, No meningeal sign. Lungs: No Respiratory distress. CV: RRR, no edema. Abdomen: Soft, nondistended, No rebound tenderness. Left upper quadrant abdominal tenderness no left CVA tenderness MSK: No joint swelling, no redness. Skin: No rashes, petechiae, lesions. Normal color per patient. Neuro: Normal Gait, Grossly intact. Psych: Appropriate for situation. Rhythm: NSR Rate: [] Scalf: Normal axis Intervals: Normal intervals Other findings: No acute ST segment or T wave changes to suggest acute ischemia. Labs: Laboratory Tests Range/Units 04/03/25 04/03/25 21:10 21:12 WBC (4.4-10.8) 10^3/uL 12.89 H RBC (3.93-5.22) 10^6/uL 4.54 Hgb (11.2-15.7) g/dL 13.6 Hct (36.0-46.0) % 40.7 MCV (80-95) fL 90 MCH (27.0-33.0) pg 30.0 MCHC (32.0-36.0) % 33.4 RDW (11.7-14.6) % 12.8 Plt Count (130-400) 10^3/uL 182 MPV (8.0-11.0) fL 12.0 H Immature Gran % % 0.4 Neutrophils % % 58.7 Lymphocytes % % 30.4 Monocytes % % 5.8 Eosinophils % % 4.0 Basophils % % 0.7 Nucleated RBC % (0.0-0.3) % 0.0 Absolute Neutrophils (1.2-6.7) 10^3/uL 7.57 H Absolute Lymphocytes (1.2-3.4) 10^3/uL 3.92 H Absolute Monocytes (0.1-0.8) 10^3/uL 0.75 Absolute Eosinophils (0.0-0.7) 10^3/uL 0.52 Absolute Basophils (0.0-0.2) 10^3/uL 0.09 Sodium (136-145) mmol/L 140 Potassium (3.5-5.1) mmol/L 3.6 Chloride (98-107) mmol/L 109 H Carbon Dioxide (20.0-31.0) mmol/L 26.0 Anion Gap (3-11) mmol/L 5 BUN (9-23) mg/dL 13 Creatinine (0.55-1.02) mg/dL 0.55 Est GFR (CKD-EPI 2020) (mL/min/1.73m2) 122.87 Glucose (74-106) mg/dL 161 H Calcium (8.3-10.6) mg/dL 9.3 Total Bilirubin (0.2-1.2) mg/dL 0.4 AST (<34) U/L 13 ALT (10-49) U/L 16 Alkaline Phosphatase (46-116) U/L 71 Total Protein (5.7-8.2) g/dL 7.0 Albumin (3.2-5.0) g/dL 4.3 Urine Color (Yellow) Yellow Urine Clarity (Clear) Clear Urine pH (5-8) 5.5 Ur Specific [place] (1.005-1.025) 1.025 Urine Protein (Neg-Trace) mg/dL Negative Urine Ketones (Negative) mg/dL Negative Urine Blood (Negative) Trace-intact H Urine Nitrite (Negative) Negative Urine Bilirubin (Negative) Negative Urine Urobilinogen (Up to 0.2) mg/dL 0.2 Ur Leukocyte Esterase (Negative) Negative Urine RBC (0-2) HPF 0-2 Urine WBC (0-5) HPF 5-10 Ur Epithelial Cells (Negative) HPF Rare Urine Crystals (Negative) HPF Negative Urine Bacteria (Negative) HPF Moderate Urine Casts (Negative) LPF Negative Urine Mucus (Negative) Trace Ur Culture Indicated? No Urine Glucose (Negative) mg/dL Negative Radiology: PROCEDURE INFORMATION: Exam: CT Abdomen And Pelvis With Contrast Exam date and time: 04/03/2025 9:36 PM Age: 39 years old Clinical indication: Abdominal pain; Localized; Left; Spleen injury 2 months ago, now with worse pain TECHNIQUE: Imaging protocol: Computed tomography of the abdomen and pelvis with contrast. Radiation optimization: All CT scans at this facility use at least one of these dose optimization techniques: automated exposure control; mA and/or kV adjustment per patient size (includes targeted exams where dose is matched to clinical indication); or iterative reconstruction. Contrast material: OMNIPAQUE 350; Contrast volume: 75 ml; Contrast route: INTRAVENOUS (IV); COMPARISON: US PELVIS TRANSVAGINAL 02/11/2025 3:25 PM FINDINGS: Lungs: Lung bases clear. Heart: 3.7 cm x 2.4 cm oval hypoattenuating lesion abutting the heart in the right cardiophrenic angle measuring 11.5 cm on image 4 of series 8 with an appearance and location suggesting a pericardial cyst. Liver: Normal appearing liver. Gallbladder and biliary ducts: Prior cholecystectomy. No biliary dilatation. Pancreas: Normal appearing pancreas. Spleen: 6.5 cm x 3.0 cm x 5.2 cm subcapsular splenic collection measuring 27 Hounsfield units density extending along the posterior aspect of the spleen, presumably the residua of a subcapsular hematoma given the provided clinical history. No evidence of active bleeding. Only trace if any adjacent fluid. KALYAN DIAZ Preliminary Radiology Re port WORKFORCE MANAGEMENT CONSULTANT (QA) DISCREPANCY? If there is a discrepancy between the preliminary and final interpretation, please notify [facility] via [email or web address]. If you do not have access to our QA portal, call our QA team at [phone] CONFIDENTIALITY STATEMENT This report is intended only for the use of the referring physician, and only in accordance with law, If you received this in error, call [phone] Page 2 of 2 Adrenal glands: Normal-appearing left adrenal gland. 1.0 cm right adrenal nodule with a density of 94 Hounsfield units on image 27 of series 8. Correlation with prior imaging recommended to document stability of size versus MRI with chemical shift imaging for definitive evaluation. Kidneys and ureters: Normal appearing kidneys. No hydronephrosis. No obstructing ureteral stones. Stomach and bowel: Stomach partially distended with fluid and ingested material. No small bowel dilatation to suggest obstruction. Normal-appearing colon. No evidence of diverticulitis or colitis. Appendix: Normal appendix. Intraperitoneal space: Trace free fluid. No free air. Vasculature: Normal caliber abdominal aorta. Lymph nodes: No pathologically enlarged mesenteric, retroperitoneal, or pelvic sidewall lymph nodes. Urinary bladder: Urinary bladder partially collapsed but grossly unremarkable, as seen. Reproductive: Prior hysterectomy. Right ovary partially obscured but normal in size. 1.5 cm dominant right ovarian follicle on image 76 of series 8. Left ovary well- visualized and normal in size. 2.2 cm dominant left ovarian follicle on image 82 of series 8. Adjacent 1.5 cm d ominant follicle on image 80 of series 8. Suggestion of trace adjacent fluid. Bones/joints: No acute fracture seen among the bones of the abdomen or pelvis. Spinal degenerative change with anterior and posterior osteophytes at several levels. Prominent discogenic degeneration at L5-S1. Soft tissues: Tiny fat-containing ventral hernia at the umbilicus, doubtful clinical significance. IMPRESSION: 1. 6.5 cm x 3.0 cm x 5.2 cm relatively low-density subcapsular splenic collection, presumably the residua of a subcapsular hematoma given the provided clinical history. No evidence of active bleeding. Only trace if any adjacent fluid. 2. Bilateral ovarian follicles, as described. Trace pelvic fluid. Prior hysterectomy. 3. No acute bowel pathology demonstrated. Thank you for allowing us to participate in the care of your patient. Dictated and Authenticated by: Mick Chavez MD Related Data Home Medications ?Medication ?Instructions ?Recorded ?Confirmed cyclobenzaprine 10 mg tablet 10 mg PO TID PRN 06/10/24 04/03/25 gabapentin 100 mg capsule 100 mg PO TID 06/10/2404/03 cefdinir 300 mg capsule 300 mg PO BID #14 caps 02/1204/03/25 Previous Rx's ?Medication ?Instructions ?Recorded cefdinir 300 mg capsule 300 mg PO BID #14 caps 02/12 Allergies Allergy/AdvReac Type Severity Reaction Status Date / Time ciprofloxacin (From Cipro) AdvReac Severe Nausea Verified 04/03/25 20:24 metformin AdvReac Severe Diarrhea Verified 04/03/25 20:24 morphine AdvReac Intermediate Other (See Verified 04/03/25 20:24 Comment) lisinopril AdvReac Unknown Unknown Verified 04/03/25 20:24 General Stated Complaint: Abd Prob TAMIKO: 4 Course Vital Signs Vital signs: Vital Signs Temperature 36.5 C 04/03/25 20:16 Pulse 94 H 04/03/25 20:16 Respiratory Rate 18 04/03/25 20:16 Blood Pressure 132/83 04/03/25 20:16 Pulse Oximetry 96 04/03/25 20:16 Temperature 36.5 C 04/03/25 20:16 Temperature Source Oral 04/03/25 20:16 Pulse 94 H 04/03/25 20:16 Respiratory Rate 18 04/03/25 20:16 Blood Pressure 132/83 04/03/25 20:16 Blood Pressure Position Sitting 04/03/25 20:16 Pulse Oximetry 96 04/03/25 20:16 Oxygen Delivery Method Room Air 04/03/25 20:16 Oxygen Flow Rate 0 04/03/25 20:16 Pain Level 7 04/03/25 20:16 Lab/Test Results Lab/Test Results: Laboratory Tests Range/Units 04/03/25 04/03/25 21:10 21:12 WBC (4.4-10.8) 10^3/uL 12.89 H RBC (3.93-5.22) 10^6/uL 4.54 Hgb (11.2-15.7) g/dL 13.6 Hct (36.0-46.0) % 40.7 MCV (80-95) fL 90 MCH (27.0-33.0) pg 30.0 MCHC (32.0-36.0) % 33.4 RDW (11.7-14.6) % 12.8 Plt Count (130-400) 10^3/uL 182 MPV (8.0-11.0) fL 12.0 H Immature Gran % % 0.4 Neutrophils % % 58.7 Lymphocytes % % 30.4 Monocytes % % 5.8 Eosinophils % % 4.0 Basophils % % 0.7 Nucleated RBC % (0.0-0.3) % 0.0 Absolute Neutrophils (1.2-6.7) 10^3/uL 7.57 H Absolute Lymphocytes (1.2-3.4) 10^3/uL 3.92 H Absolute Monocytes (0.1-0.8) 10^3/uL 0.75 Absolute Eosinophils (0.0-0.7) 10^3/uL 0.52 Absolute Basophils (0.0-0.2) 10^3/uL 0.09 Sodium (136-145) mmol/L 140 Potassium (3.5-5.1) mmol/L 3.6 Chloride (98-107) mmol/L 109 H Carbon Dioxide (20.0-31.0) mmol/L 26.0 Anion Gap (3-11) mmol/L 5 BUN (9-23) mg/dL 13 Creatinine (0.55-1.02) mg/dL 0.55 Est GFR (CKD-EPI 2020) (mL/min/1.73m2) 122.87 Glucose (74-106) mg/dL 161 H Calcium (8.3-10.6) mg/dL 9.3 Total Bilirubin (0.2-1.2) mg/dL 0.4 AST (<34) U/L 13 ALT (10-49) U/L 16 Alkaline Phosphatase (46-116) U/L 71 Total Protein (5.7-8.2) g/dL 7.0 Albumin (3.2-5.0) g/dL 4.3 Urine Color (Yellow) Yellow Urine Clarity (Clear) Clear Urine pH (5-8) 5.5 Ur Specific [place] (1.005-1.025) 1.025 Urine Protein (Neg-Trace) mg/dL Negative Urine Ketones (Negative) mg/dL Negative Urine Blood (Negative) Trace-intact H Urine Nitrite (Negative) Negative Urine Bilirubin (Negative) Negative Urine Urobilinogen (Up to 0.2) mg/dL 0.2 Ur Leukocyte Esterase (Negative) Negative Urine RBC (0-2) HPF 0-2 Urine WBC (0-5) HPF 5-10 Ur Epithelial Cells (Negative) HPF Rare Urine Crystals (Negative) HPF Negative Urine Bacteria (Negative) HPF Moderate Urine Casts (Negative) LPF Negative Urine Mucus (Negative) Trace Ur Culture Indicated? No Urine Glucose (Negative) mg/dL Negative POC- Test(urine) Negative PFSH All Active Problems (Updated 04/03/25 @ 22:34 by Ace Wilson MD) Abdominal pain, left upper quadrant (Acute) Type 2 diabetes mellitus (Chronic) SHILPI (obstructive sleep apnea) (Chronic) Foreign body in nose (Acute) Surgical History (Updated 11/08/21 @ 15:13 by Lasha Byrd MD) S/p bilateral myringotomy with tube placement History of tonsillectomy and adenoidectomy Social History Smoking/Tobacco Use Status: Current every day Tobacco Type: cigarettes Smoking risk assessment performed?: Yes Alcohol Intake: current Alcohol Intake frequency: holidays/special occasions only Drug use: Occasionally Substance use type: marijuana Housing: other Do you feel safe at home: Yes Do you feel safe in your relationship?: Yes
[2025-04-03 22:44] VITALS: BP 128/78; PULSE 88; RESP 16; O2SAT 98
== END 2025-04-03 22:59 | disposition home or self-care (01) ==
PROVIDERS: Emergency Provider General Practice; PCP Family Medicine
DX: R10.12 Left upper quadrant pain (principal); Z87.828 Personal history of other (healed) physical injury and trauma; R10.A2 Flank pain, left side
CPT/HCPCS: 80053; 81025; 96365; 96375; 99285; 74177; 81003; 81015; 85025; 99283; J0131; J1885; J3490